=== PATIENT | female | born 1950 | race Caucasian/White ===

== ENCOUNTER 2019-04-12 04:18 | Inpatient (IN) | payer MEDICARE, BC, MEDICAID ==
--- NOTE | 2019-04-12 04:39 | EDM.PDOC ---
ED HPI GENERAL MEDICAL PROBLEM - General Chief Complaint: Respiratory Problem Stated Complaint: SOB, wheezing Time Seen by Provider: 04/12/19 04:30 Source of Information: Reports: Patient, Old Records ([facility] chart/EMR), Other ([facility] EMR reviewed on 08/30/14) - History of Present Illness INITIAL COMMENTS - FREE TEXT/NARRATIVE: The patient was brought to the emergency room via ambulance with director it project For evaluation of progressive dyspnea since yesterday morning with symptoms refractory to hormone nebulizer and inhaler treatments. She is a somewhat poor historian secondary to her mental status. The paramedics did use a DuoNeb nebulizer treatment in route. Patient does complain of 8/10 nonspecific interscapular pain with overall stable chronic heartburn type symptoms. The patient denies any chest pain/pressure, heart flutter, dizziness, orthostasis, orthopnea, diaphoresis, paresthesias, recent decreased exercise tolerance, or any other anginal-type symptoms. No recent history of other abdominal pain, nausea, melena, gross hematochezia, or any food intolerance, including fatty foods, etc., although somewhat loose stools at time of last bowel movement 3 days ago. She denies any gross hematuria, colic or other UTI symptoms. The patient also denies any recent fever or known exposure to infection. No recent use of antipyretic medications. Onset: Gradual, Unknown/Unsure Onset Date: 04/11/19 Duration: Constant, Getting Worse Location: Reports: Back. Denies: Head, Face, Neck, Chest, Abdomen, Upper Extremity, Left, Upper Extremity, Right, Radiates to Quality: Reports: Ache, Same as Previous Episode Severity: Moderate Improves with: Reports: None Worsens with: Reports: None Context: Reports: Other (As above). Denies: Sick Contact, Trauma Associated Symptoms: Reports: Confusion (Stable chronic), Cough, Rash (Stable), Shortness of Breath, Weakness (Stable with required walker use). 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, Oxygen (Nonrebreather) Upper Back Pain Score (Numeric/FACES): 8 - Related Data Allergies Allergy/AdvReac Type Severity Reaction Status Date / Time Penicillins Allergy Hives Verified 04/12/19 04:35 Sulfa (Sulfonamide Allergy Cannot Verified 04/12/19 04:35 Antibiotics) Remember Home Meds: Home Meds Acetaminophen [Tylenol Arthritis] 650 mg PO Q8H PRN 04/12/19 [History] Acetaminophen [Tylenol] 325 mg PO Q4H PRN 04/12/19 [History] Albuterol [Ventolin HFA] 2 puff INH Q4H PRN 04/12/19 [History] Albuterol/Ipratropium [DuoNeb 3.0-0.5 MG/3 ML] 3 ml INH Q4H PRN 04/12/19 [ History] Aspirin 81 mg PO DAILY 04/12/19 [History] Bisacodyl [Dulcolax] 5 mg PO DAILY PRN 04/12/19 [History] Calcium Citrate 200 mg PO DAILY 04/12/19 [History] Clopidogrel Bisulfate [Plavix] 75 mg PO DAILY 04/12/19 [History] Dapagliflozin Propanediol [Farxiga] 10 mg PO DAILY 04/12/19 [History] Gabapentin [Neurontin] 100 mg PO DAILY@08,,20 04/12/19 [History] Lisinopril [Zestril] 15 mg PO DAILY 04/12/19 [History] Magnesium Oxide [Magnesium] 400 mg PO DAILY 04/12/19 [History] Mirabegron [Myrbetriq] 25 mg PO BEDTIME 04/12/19 [History] Non-Formulary Medication [NF Drug] 2 inh INH DAILY 04/12/19 [History] Pantoprazole Sodium [Protonix] 20 mg PO DAILY 04/12/19 [History] Rosuvastatin [Crestor] 20 mg PO BEDTIME 04/12/19 [History] Sennosides/Docusate Sodium [Senna-S] 2 each PO BID 04/12/19 [History] Venlafaxine [Effexor XR] 75 mg PO DAILY 04/12/19 [History] Venlafaxine [Effexor XR] 150 mg PO DAILY 04/12/19 [History] busPIRone [Buspar] 15 mg PO DAILY@12 04/12/19 [History] metFORMIN HCl [Metformin HCl] 1,000 mg PO BID 04/12/19 [History] risperiDONE 1 mg PO BEDTIME 04/12/19 [History] risperiDONE [Risperdal] 0.25 mg PO DAILY@18 04/12/19 [History] Past Medical History HEENT History: Reports: Cataract, Impaired Vision, Other (See Below). Denies: Allergic Rhinitis, Glaucoma, Hard of Hearing, Macular Degeneration, Otitis Media , Retinal Detachment Other HEENT History: Patient wears glasses. Cardiovascular History: Reports: Afib, CAD, High Cholesterol, Hypertension, PVD , Syncope, Other (See Below). Denies: Aneurysm, Arrhythmia, Blood Clots/VTE/DVT , Cardiomyopathy, Heart Failure, Heart Murmur, RI Other Cardiovascular History: Fracture atrial fibrillation with rapid ventricular response coronary artery disease based on CT scan of the chest with no other cardiac workup. Mild aortic valve stenosis and mitral valve insufficiency by clinical exam. Moderate bilateral carotid occlusive disease. Respiratory History: Reports: Bronchitis, Recurrent, COPD, Intubation, Previous , Pneumonia, Recurrent, Other (See Below). Denies: Intubation, Difficult, PE, Pneumothorax, Sleep Apnea, TB Other Respiratory History: When necessary oxygen use secondary to hypoxia Gastrointestinal History: Reports: Chronic Constipation, Colon Polyp, Diverticulosis, Fecal Incontinence, Gastritis, GERD, Hiatal Hernia, Other (See Below). Denies: Celiac Disease, Cholelithiasis, Chronic Diarrhea, GI Bleed, Hemorrhoids, Hepatitis, Inflammatory Bowel Disease, Irritable Bowel Syndrome, Jaundice, Pancreatitis Other Gastrointestinal History: Gastritis with previous positive H pylori infection based on qualitative screen on 08/08/13 with unknown previous treatment. Tubular adenoma and tubulovillous adenoma of the ascending and transverse colon Genitourinary History: Reports: Urinary Incontinence, UTI, Recurrent. Denies: Acute Renal Failure, Chronic Renal Insuffiency, Renal Calculus, STD GRADES 1 THROUGH 5 TEACHER History: Reports: Dysfunctional Uterine Bleeding, Fibroids, . Denies: Spontaneous : 2 Para: 2 LMP (Approximate): Other (See Below) Other GRADES 1 THROUGH 5 TEACHER History: Full term without complications during pregnancies or deliveries. Surgical menopause as below. Musculoskeletal History: Reports: Arthritis, Back Pain, Chronic, Osteoarthritis , Osteoporosis. Denies: Amputation, Fracture, Gout, Neck Pain, Chronic, RA, SLE Neurological History: Reports: Other (See Below). Denies: Cerebral Aneurysms, Concussion, CVA, Headaches, Chronic, Head Trauma, Migraines, MS, Neuropathy, Peripheral, Parkinson's, Seizure, TIA Other Neuro History: Borderline organic brain syndrome. Psychiatric History: Reports: Addiction, Anxiety, Depression, Psych Hospitalization(s), Psychosis, Other (See Below). Denies: Abuse, Victim of, ADD , ADHD, PTSD, Suicide Attempt, Suicidal Ideation Other Psychiatric History: History of alcohol abuse and treatment as below. Endocrine/Metabolic History: Reports: Diabetes, Type II, IDDM, Obesity/BMI 30+, Osteopenia, Osteoporosis, Other (See Below). Denies: Hypothyroidism Other Endocrine/Metabolic History: Hypomagnesemia. Hematologic History: Reports: Anemia, B12 Deficiency, Blood Transfusion(s), Iron Deficiency, Other (See Below) Other Hematologic History: blood transfusion in 1975 Immunologic History: Denies: AIDS, HIV, SLE Oncologic (Cancer) History: Denies: Basal Cell Carcinoma, Breast, Cervix, Hodgkin's Lymphoma, Leukemia, Lymphoma, Malignant Melanoma, Non-Hodgkin's Lymphoma, Ovarian, Squamous Cell Carcinoma, Uterine Dermatologic History: Reports: Other (See Below) Other Dermatologic History: Nonspecific dermatitisatopic dermatitis? - Infectious Disease History Infectious Disease History: Reports: Chicken Pox, Helicobacter Pylori (2013 as above.), Measles, Mumps, Pertussis (Whooping Cough). Denies: C-Difficile, Meningitis, Mononucleosis, MRSA, Rheumatic Fever, Rubella, Scarlet Fever, Shingles, TB - Past Surgical History Head Surgeries/Procedures: Reports: None HEENT Surgical History: Reports: Cataract Surgery, Oral Surgery, Other (See Below). Denies: Adenoidectomy, Eye Surgery, Laser Surgery, LASIK, Myringotomy w Tube(s), Naso-Sinus Surgery, Tonsillectomy Other HEENT Surgeries/Procedures: Complete teeth extraction with complete dentures uppers and lowers. Bilateral cataract surgery in about 2016 Cardiovascular Surgical History: Reports: Carotid Endarterectomy, Other (See Below). Denies: Varicose Other Cardiovascular Surgeries/Procedures: Left-sided femoral-popliteal bypass on 08/21/14. Respiratory Surgical History: Reports: None. Denies: Thoracentesis GI Surgical History: Reports: Appendectomy, Colonoscopy, Polypectomy, Other ( See Below). Denies: Cholecystectomy, EGD, Hernia, Abdominal, Hernia, Inguinal, Hernia Repair/Other Other GI Surgeries/Procedures: Appendectomy in 1968. Colonoscopy with polypectomies as above on 08/07/13. Female Surgical History: Reports: Hysterectomy, Salpingo-Oophorectomy, Other (See Below). Denies: Section, D&C, Tubal Ligation Other Female Surgeries/Procedures: Partial hysterectomy with unilateral salpingo-oophorectomy secondary to dysfunctional uterine bleeding in 1981. Endocrine Surgical History: Reports: None. Denies: Thyroid Biopsy Neurological Surgical History: Reports: None. Denies: C-Spine, Discectomy, Laminectomy, Lumbar Spine, Sacral Spine, Spinal Fusion, Thoracic Spine, Vertebroplasty Musculoskeletal Surgical History: Reports: None. Denies: Arthroscopic Procedure , Carpal Tunnel, Ganglion Cyst, Hip Replacement, ORIF, Shoulder Surgery Oncologic Surgical History: Reports: None Dermatological Surgical History: Reports: None - Past Imaging History Past Imaging History: Reports: Angiography (Bilateral lower extremity angiogram on 07/19/14), Cardiac Echo (05/27/15 with ejection fraction of 6065 percent), Carotid US (Last on 01/29/19 with moderate bilateral disease with previous evaluation on 07/09/14.), CAT Scan (CT of the abdomen, pelvis, and chest on . CT of the chest on 08/21/09.), DEXA Scan (05/25/13.), Mammogram (Last on 01/29), MRI (Brain on 06/09/15), PFT (Last on 07/01/14.) Social & Family History - Family History HEENT: Denies: Glaucoma, Macular Degeneration, Retinal Detachment Cardiac: Reports: Aneurysm, Bypass, CAD, RI, PVD/COD, Other (See Below). Denies : Afib, Arrhythmia, High Cholesterol, Hypertension, Syncope Other Cardiac Family History: Mother with RI at age 56 with CABG and PTCA with subsequent fatal heart disease in her 70s. Father with RI in his late 50s. Brother with fatal RI in his 60s. Father with fatal cerebral aneurysms/CVA at age 74. Respiratory: Reports: None. Denies: Asthma, COPD, PE, Pneumothorax, Sleep Apnea GI: Reports: None. Denies: Celiac Disease, Cholelithiasis, Colon Polyps, GI bleed, Inflammatory Bowel Disease, Irritable Bowel Syndrome, PUD : Reports: None. Denies: Dialysis, Renal Calculus, Renal Disease/ Insufficiency OBGYN: Reports: None. Denies: Endometriosis, Recurrent Spontaneous Musculoskeletal: Reports: None. Denies: Gout, RA, SLE Neurological: Reports: Alzheimers Disease, Cerebral Aneurysms, CVA, Dementia, Other (See Below). Denies: Migraines, MS, Parkinson's, Seizure, TIA Other Neurological Family History: Father with fatal cerebral aneurysm as above. Sister with organic brain syndrome/Alzheimer's disease. Psychiatric: Reports: None. Denies: Abuse, Victim of, ADD, Anxiety, Depression , Psych Hospitalization(s), PTSD, Suicide Attempt Endocrine/Metabolic: Reports: Diabetes, type II, Other (See Below). Denies: Diabetes, Type I, Diabetes Mellitus, Type 3c, Hypothyroidism, IDDM Other Endocrine/Metabolic Family History: Brother with AODM Hematologic: Reports: None. Denies: Anemia Immunologic: Reports: None. Denies: AIDS, HIV, SLE Oncologic: Reports: Brain, Other (See Below). Denies: Cervix, Colon, Hodgkin's Lymphoma, Leukemia, Lymphoma, Non-Hodgkin's Lymphoma, Ovarian, Skin, Uterine Other Oncologic Family History: Maternal aunt with fatal brain cancer in her 50s. - Tobacco Use Smoking Status *Q: Former Smoker Tobacco Use Within Last Twelve Months: No Years of Tobacco use: 42 Packs/Tins Daily: 1.5 Packs/Tins Daily Comment: Stopped smoking in 2000 with maximum use of 2 packs per day. Used Tobacco, but Quit: Yes Smoking Cessation Information Provided To Patient: No Second Hand Smoke Exposure: No Second Hand Smoke Education Provided: No - Caffeine Use Caffeine Use: Reports: Coffee (2 cups per day), Soda (1 soda per day). Denies: Energy Drinks, Tea - Alcohol Use Alcohol Use History: Yes Days Per Week of Alcohol Use: 0 Number of Drinks Per Day Comment: History of alcohol abuse and treatment with no alcohol use since 1998. 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 ED EXAM, GENERAL - Physical Exam Exam: See Below Exam Limited By: No Limitations General Appearance: Alert, WD/WN, No Apparent Distress Eye Exam: Bilateral Eye: EOMI, Normal Inspection (Patient wearing glasses. No nystagmus), PERRL Ears: Normal External Exam, Normal Canal, Hearing Grossly Normal, Normal TMs Nose: Normal Inspection, Normal Mucosa, No Blood Throat/Mouth: Normal Lips, Normal Gums, Normal Oropharynx, Normal Voice, No Airway Compromise. No: Normal Teeth (Complete absent dentition with patient only wearing her upper dentures), Dysphagia, Perioral Cyanosis Head: Atraumatic, Normocephalic. No: Facial Swelling, Facial Tenderness, Sinus Tenderness Neck: Supple, Non-Tender, Full Range of Motion, Carotid Bruit (Mild bilateral carotid bruits versus transmitted heart sounds). No: Lymphadenopathy (L), Lymphadenopathy (R), Thyromegaly Respiratory/Chest: No Respiratory Distress, No Accessory Muscle Use, Chest Non- Tender, Rales (Mild bilateral), Rhonchi (Occasional mild bilateral). No: Wheezing, Pleural Rub, Retractions Cardiovascular: Normal Peripheral Pulses, No Edema, No Gallop, No JVD, No Rub, Tachycardia (Regular rhythm), Systolic Murmur (Mild 1/6 CHANELLE of the aortic and mitral valves). No: Gallop/S3, Gallop/S4, Friction Rub Peripheral Pulses: 2+: Radial (L), Radial (R), Dorsalis Pedis (L), Dorsalis Pedis (R) GI/Abdominal: Normal Bowel Sounds, Soft, Non-Tender, No Organomegaly, No Distention, No Abnormal Bruit, No Mass. No: Guarding, Other (Obese) (Female) Exam: Deferred Rectal (Female) Exam: Deferred Back Exam: Normal Inspection, Full Range of Motion. No: CVA Tenderness (L), CVA Tenderness (R), Muscle Spasm Extremities: Normal Inspection, Normal Range of Motion, Non-Tender, No Pedal Edema, Normal Capillary Refill. No: Jonathan's Sign Neurological: Alert, Oriented, CN II-XII Intact, Normal Cognition, Normal Gait, Normal Reflexes (Negative Babinski's), No Motor/Sensory Deficits Psychiatric: Normal Affect, Normal Mood Skin Exam: Rash (Stable diffuse mostly facial region consistent with atopic dermatitis). No: Diaphoretic, Wound/Incision Lymphatic: No Adenopathy EKG INTERPRETATION EKG Date: 04/12/19 Time: 04:58 Rhythm: Other (Sinus tachycardia with PVC) Rate (Beats/Min): 106 [place]: Normal (Neutral cardiac axis) P-Wave: Present QRS: Normal (QRS interval 0.06 seconds) ST-T: Normal QT: Normal FL/PQ Interval: 0.15 seconds Comparison: NA - No Prior EKG EKG Interpretation Comments: 1. No acute ischemic changes 2. Sinus tachycardia 3. PVC Course - Vital Signs Last Recorded V/S: Last Vital Signs Temp 36.4 C 04/12/19 04:20 Pulse 104 H 04/12/19 05:35 Resp 20 04/12/19 05:35 BP 160/67 H 04/12/19 05:35 Pulse Ox 96 04/12/19 05:35 Vital Signs - 24 hr 04/12/19 04/12/19 04/12/19 04:20 05:05 05:35 Temperature [ 36.4 C Oral] Pulse, 96 104 H 104 H Peripheral [ Pulse Oximetry] Respiratory 18 20 20 Rate Blood Pressure 172/75 H 134/66 160/67 H [Right Upper Arm] O2 Sat by Pulse 92 L 95 96 Oximetry 04/12/19 06:05 Temperature [ Oral] Pulse, 104 H Peripheral [ Pulse Oximetry] Respiratory 20 Rate Blood Pressure 157/69 H [Right Upper Arm] O2 Sat by Pulse 96 Oximetry - Orders/Labs/Meds Orders: Active Orders 24 hr Category Date Time Status Cardiac Monitoring [RC] . DIRECTED Care 04/12/19 04:40 Active EKG Documentation Completion [RC] ASDIRECTED Care 04/12/19 04:40 Active Oxygen Therapy, ED [RC] PRN Care 04/12/19 04:40 Active Peripheral IV Care [RC] . DIRECTED Care 04/12/19 04:40 Active Pulse Oximetry [RC] CONTINUOUS Care 04/12/19 04:40 Active RT Aerosol Therapy [RC] ASDIRECTED Care 04/12/19 04:43 Active Up With Assistance [RC] PFP Care 04/12/19 04:40 Active Vital Signs [RC] PFP Care 04/12/19 04:40 Active Nothing per Oral Now Diet [DIET] Diet 04/12/19 Breakfast Active Chest 1V Frontal [CR] Stat Exams 04/12/19 04:40 Ordered Sodium Chloride 0.9% [Saline Flush] Med 04/12/19 04:40 Active 10 ml FLUSH ASDIRECTED PRN Obtain Past Medical Record [OM.PC] Urgent Oth 04/12/19 04:40 Active Peripheral IV Insertion Adult [OM.PC] Stat Oth 04/12/19 04:40 Ordered Resuscitation Status Stat Resus Stat 04/12/19 04:40 Ordered Medication Orders Sodium Chloride (Saline Flush) 10 ml FLUSH ASDIRECTED PRN PRN Reason: Keep Vein Open Last Admin: 04/12/19 05:03 Dose: 10 ml Labs: Laboratory Tests 04/12/19 04/12/19 04/12/19 Range/Units 05:15 05:25 05:35 WBC 14.2 H (4.0-10.2) K/uL RBC 4.93 (3.77-5.09) M/uL Hgb 13.3 (11.7-15.5) g/dL Hct 42.0 (34.0-46.0) % MCV 85.2 (84.0-98.0) fL MCH 27.0 L (28.2-33.3) pg MCHC 31.7 (31.7-36.0) g/dL RDW 14.5 H (11.2-14.1) % Plt Count 295 (150-350) K/uL Neut % (Auto) 70.4 (45.0-80.0) % Lymph % (Auto) 16.2 (10.0-50.0) % [place] % (Auto) 7.9 (2.0-14.0) % Eos % (Auto) 5.1 H (0.0-5.0) % Baso % (Auto) 0.4 (0.0-2.0) % Neut # (Auto) 10.04 H (1.40-7.00) K/uL Lymph # (Auto) 2.31 (0.50-3.50) K/uL [place] # (Auto) 1.12 H (0.00-1.00) K/uL Eos # (Auto) 0.72 H (0.00-0.50) K/uL Baso # (Auto) 0.05 (0.00-0.20) K/uL PT 10.5 (9.5-12.0) SEC INR 1.0 APTT 25.7 (21.0-31.3) SEC D-Dimer, Quantitative 361 (0-400) ng/mL Sodium (136-145) mmol/L Potassium (3.5-5.1) mmol/L Chloride (98-107) mmol/L Carbon Dioxide (21.0-32.0) mmol/L BUN (7-18) mg/dL Creatinine (0.51-1.17) mg/dL Est Cr Clr Drug Dosing mL/min Estimated GFR (MDRD) mL/min Glucose (74-106) mg/dL Lactic Acid (0.4-2.0) mmol/L Uric Acid (2.6-7.2) mg/dL Calcium (8.5-10.1) mg/dL Magnesium (1.8-2.4) mg/dL Total Bilirubin (0.2-1.0) mg/dL AST (15-37) U/L ALT (12-78) U/L Alkaline Phosphatase (46-116) IU/L Creatine Kinase (26-308) U/L Creatine Kinase Index (0.0-2.5) % CK-MB (CK-2) (0.00-3.60) ng/mL Troponin I (0.000-0.056) ng/mL NT-Pro-B Natriuret Pep (0-125) pg/mL Total Protein (6.4-8.2) g/dL Albumin (3.4-5.0) g/dL TSH, Ultra Sensitive (0.358-3.740) mIU/mL 04/12/19 04/12/19 Range/Units 05:35 05:35 WBC (4.0-10.2) K/uL RBC (3.77-5.09) M/uL Hgb (11.7-15.5) g/dL Hct (34.0-46.0) % MCV (84.0-98.0) fL MCH (28.2-33.3) pg MCHC (31.7-36.0) g/dL RDW (11.2-14.1) % Plt Count (150-350) K/uL Neut % (Auto) (45.0-80.0) % Lymph % (Auto) (10.0-50.0) % [place] % (Auto) (2.0-14.0) % Eos % (Auto) (0.0-5.0) % Baso % (Auto) (0.0-2.0) % Neut # (Auto) (1.40-7.00) K/uL Lymph # (Auto) (0.50-3.50) K/uL [place] # (Auto) (0.00-1.00) K/uL Eos # (Auto) (0.00-0.50) K/uL Baso # (Auto) (0.00-0.20) K/uL PT (9.5-12.0) SEC INR APTT (21.0-31.3) SEC D-Dimer, Quantitative (0-400) ng/mL Sodium 139 (136-145) mmol/L Potassium 4.4 (3.5-5.1) mmol/L Chloride 101 (98-107) mmol/L Carbon Dioxide 26.1 (21.0-32.0) mmol/L BUN 14 (7-18) mg/dL Creatinine 0.87 (0.51-1.17) mg/dL Est Cr Clr Drug Dosing 47.59 mL/min Estimated GFR (MDRD) > 60 mL/min Glucose 220 H (74-106) mg/dL Lactic Acid 2.7 H (0.4-2.0) mmol/L Uric Acid 4.3 (2.6-7.2) mg/dL Calcium 9.2 (8.5-10.1) mg/dL Magnesium 1.5 L (1.8-2.4) mg/dL Total Bilirubin 0.2 (0.2-1.0) mg/dL AST 11 L (15-37) U/L ALT 14 (12-78) U/L Alkaline Phosphatase 76 (46-116) IU/L Creatine Kinase 50 (26-308) U/L Creatine Kinase Index 3.4 H (0.0-2.5) % CK-MB (CK-2) 1.70 (0.00-3.60) ng/mL Troponin I 0.009 (0.000-0.056) ng/mL NT-Pro-B Natriuret Pep 182 H (0-125) pg/mL Total Protein 7.4 (6.4-8.2) g/dL Albumin 3.6 (3.4-5.0) g/dL TSH, Ultra Sensitive 5.223 H (0.358-3.740) mIU/mL Meds: Medications Generic Name Dose Route Start Last Admin Trade Name Freq PRN Reason Stop Dose Admin Sodium Chloride 10 ml 04/12/19 04:40 04/12/19 05:03 Saline Flush FLUSH 10 ml ASDIRECTED PRN Administration Keep Vein Open Discontinued Medications Generic Name Dose Route Start Last Admin Trade Name Freq PRN Reason Stop Dose Admin Budesonide 0.5 mg 04/12/19 04:43 04/12/19 04:48 Pulmicort NEB 04/12/19 04:44 0.5 mg ONETIME ONE Administration Famotidine 40 mg 04/12/19 04:40 04/12/19 05:03 Pepcid IVPUSH 04/12/19 04:41 40 mg ONETIME ONE Administration - Radiology Interpretation Free Text/Narrative:: Site Interpreter shows mild sinus tachycardia with heart rate in the 100s with very occasional PVCs. Chest x-ray, portable, shows evidence of moderate COPD and moderate bilateral perihilar prominence possible mild centralized chest cardiomegaly, etc. Departure - Departure Time of Disposition: 06:15 Disposition: Admitted As Inpatient 64 Condition: Fair Clinical Impression: Diabetes mellitus, COPD (chronic obstructive pulmonary disease), Hypertension, Osteoarthritis, Mixed anxiety depressive disorder, Peptic reflux disease, Comfort measures only status, Lactic acid increased, Hypomagnesemia - Discharge Information *PRESCRIPTION DRUG MONITORING PROGRAM REVIEWED*: Not Applicable *COPY OF PRESCRIPTION DRUG MONITORING REPORT IN PATIENT WOODY: Not Applicable Referrals: Natalie Johnson NP [Primary Care Provider] - Forms: ED Department Discharge - Problem List & Annotations (1) COPD (chronic obstructive pulmonary disease) SNOMED Code(s): 35966251 Code(s): J44.9 - CHRONIC OBSTRUCTIVE PULMONARY DISEASE, UNSPECIFIED Status : Chronic Priority: High Current Visit: Yes Annotation/Comment:: COPD exacerbation likely secondary to beginning bronchitis with no direct evidence of pneumonia by clinical exam. Mild leukocytosis possibly secondary to stress reaction with no fever. Overall good results with Pulmicort nebulizer treatment in the ER with previous DuoNeb treatment given by the paramedics as above. Patient was hypoxic in the emergency room and did require supplemental O2 therapy. IV antibiotic therapy to be initiated immediately upon admission. Qualifiers: COPD type: COPD with acute lower respiratory infection Qualified Code(s): J44.0 - Chronic obstructive pulmonary disease with acute lower respiratory infection (2) Heart disease SNOMED Code(s): 71475355 Code(s): I51.9 - HEART DISEASE, UNSPECIFIED Status: Acute Priority: High Current Visit: Yes Annotation/Comment:: Patient is a somewhat poor historian as above. No direct evidence of true angina with chest pain protocol not initiated upon patient's arrival. Probable coronary artery disease based on previous CT scans as above. Initiate standard rule out RI orders. Note comfort care. Cardiology consultation depending on her clinical course. CK index artifactually elevated secondary to low CK-MB baseline. Note multiple cardiac risk factors including peripheral vascular disease, etc. as above (3) Comfort measures only status SNOMED Code(s): 33583968669507 Code(s): Z51.5 - ENCOUNTER FOR PALLIATIVE CARE Status: Chronic Priority: Medium Current Visit: Yes Annotation/Comment:: Comfort/palliative care confirmed with the patient today. (4) PVCs (premature ventricular contractions) SNOMED Code(s): 05646171 Code(s): I49.3 - VENTRICULAR PREMATURE DEPOLARIZATION Status: Acute Priority: Medium Current Visit: Yes Onset Date: 04/12/19 Annotation/ Comment:: Newly diagnosed with previous history of refractory atrial fibrillation as above. Note current sinus tachycardia. Continue to observe closely. (5) Diabetes mellitus SNOMED Code(s): 68238063 Code(s): E11.9 - TYPE 2 DIABETES MELLITUS WITHOUT COMPLICATIONS Status: Acute Priority: Medium Current Visit: Yes Annotation/Comment:: Home Accu- Cheks under good control by patient history averaging in the 180s to 190s in the a.m. (6) Hypertension SNOMED Code(s): 36886962 Code(s): I10 - ESSENTIAL (PRIMARY) HYPERTENSION Status: Chronic Priority : Medium Current Visit: Yes Annotation/Comment:: Blood pressure somewhat elevated in the emergency room. Continue to observe closely. Qualifiers: Hypertension type: essential hypertension Qualified Code(s): I10 - Essential (primary) hypertension (7) Mixed anxiety depressive disorder SNOMED Code(s): 091083881 Code(s): F41.8 - OTHER SPECIFIED ANXIETY DISORDERS Status: Chronic Priority: Medium Current Visit: Yes Annotation/Comment:: Stable by history with previous history of psychosis, alcohol addiction, etc. as above. (8) Osteoarthritis SNOMED Code(s): 459737853 Code(s): M19.90 - UNSPECIFIED OSTEOARTHRITIS, UNSPECIFIED SITE Status: Chronic Priority: Medium Current Visit: Yes Annotation/Comment:: Stable by history with exception of nonspecific midthoracic/intrascapular discomfort. No history of fall or injury. Cannot rule out cardiac etiology. Qualifiers: Osteoarthritis location: multiple joints Osteoarthritis type: primary Qualified Code(s): M15.0 - Primary generalized (osteo)arthritis (9) Peptic reflux disease SNOMED Code(s): 086360539 Code(s): K21.9 - GASTRO-ESOPHAGEAL REFLUX DISEASE WITHOUT ESOPHAGITIS Status: Chronic Priority: Medium Current Visit: Yes Annotation/Comment:: Stable by history. High-dose IV Pepcid given in the emergency room (10) Lactic acid increased SNOMED Code(s): 07673047 Code(s): E87.2 - ACIDOSIS Status: Acute Priority: High Current Visit: Yes Onset Date: 04/12/19 Annotation/Comment:: Lactic acid elevation, however no clinical evidence of sepsis. Lactic acid will be repeated at time of next cardiac enzymes. (11) Hypomagnesemia SNOMED Code(s): 304205429 Code(s): E83.42 - HYPOMAGNESEMIA Status: Chronic Priority: Medium Current Visit: Yes Annotation/Comment:: Increase current magnesium oxide supplementation. - Problem List Review Problem List Initiated/Reviewed/Updated: Yes - My Orders Last 24 Hours: My Active Orders 04/12/19 04:40 Cardiac Monitoring [RC] . DIRECTED EKG Documentation Completion [RC] ASDIRECTED Oxygen Therapy, ED [RC] PRN Peripheral IV Care [RC] . DIRECTED Pulse Oximetry [RC] CONTINUOUS Up With Assistance [RC] PFP Vital Signs [RC] PFP Chest 1V Frontal [CR] Stat Sodium Chloride 0.9% [Saline Flush] 10 ml FLUSH ASDIRECTED PRN Obtain Past Medical Record [OM.PC] Urgent Peripheral IV Insertion Adult [OM.PC] Stat Resuscitation Status Stat 04/12/19 04:43 RT Aerosol Therapy [RC] ASDIRECTED 04/12/19 Breakfast Nothing per Oral Now Diet [DIET] - Assessment/Plan Admission H&P: Please use this note as an admission H&P Last 24 Hours: My Active Orders 04/12/19 04:40 Cardiac Monitoring [RC] . DIRECTED EKG Documentation Completion [RC] ASDIRECTED Oxygen Therapy, ED [RC] PRN Peripheral IV Care [RC] . DIRECTED Pulse Oximetry [RC] CONTINUOUS Up With Assistance [RC] PFP Vital Signs [RC] PFP Chest 1V Frontal [CR] Stat Sodium Chloride 0.9% [Saline Flush] 10 ml FLUSH ASDIRECTED PRN Obtain Past Medical Record [OM.PC] Urgent Peripheral IV Insertion Adult [OM.PC] Stat Resuscitation Status Stat 04/12/19 04:43 RT Aerosol Therapy [RC] ASDIRECTED 04/12/19 Breakfast Nothing per Oral Now Diet [DIET] Assessment:: As above Plan: As above. Extensive precautions were given to the patient, who is in agreement with the treatment plan. The patient will require about 3-4 days of inpatient/ acute care secondary to multiple health problems as above.
[2019-04-12] MEDS ORDERED: Famotidine 20 MG/2 ML SDV IVPUSH ONE (04:40)
[2019-04-12] MEDS ORDERED: Budesonide 0.5 MG/2 ML Neb Susp NEB ONE (04:43)
[2019-04-12] MEDS: Sodium Chloride 0.9% 10 ML Syringe FLUSH PRN (05:03)
[2019-04-12 06:07] LABS: CHLORIDE,CL 101 mmol/L (98-107); SODIUM,NA 139 mmol/L (136-145)
[2019-04-12] MEDS ORDERED: Albuterol 0.083% 2.5 MG/3 ML Neb Soln NEB PRN (06:22)
[2019-04-12] MEDS ORDERED: Albuterol/Ipratropium 3.0-0.5 MG/3 ML Neb Soln NEB PRN (06:22)
[2019-04-12] MEDS: Sodium Chloride 0.9% 10 ML Syringe FLUSH SCH ×2 (07:01→18:20)
[2019-04-12] MEDS: cefTRIAXone 1 GM in Sodium Chloride 0.9% 100 ML IV SCH ×2 (07:01→18:19)
[2019-04-12] MEDS: Levofloxacin/Dextrose 5%-Water 500 MG in Premix Bag 1 BAG IV SCH (07:43)
[2019-04-12] MEDS: Lisinopril 10 MG Tab PO SCH (07:50)
[2019-04-12] MEDS: Dextromethorphan/guaiFENesin 600-30 MG Tab.ER PO SCH ×2 (07:50→18:18)
[2019-04-12] MEDS: Venlafaxine 75 MG Cap.ER PO SCH (07:57)
[2019-04-12] MEDS: Gabapentin 100 MG Cap PO SCH ×3 (07:58→19:27)
[2019-04-12] MEDS: metFORMIN 500 MG Tab PO SCH ×2 (07:59→18:18)
[2019-04-12] MEDS ORDERED: DAPAGLIFLOZIN PROPANEDIOL 10 MG PO SCH (08:00)
[2019-04-12] MEDS ORDERED: Non-Formulary Medication 1 Each (Venlafaxine [Effexor Xr] 150 MG) PO SCH (08:00)
[2019-04-12] MEDS: Pantoprazole 40 MG Tab.CR PO SCH (08:01)
[2019-04-12] MEDS: Aspirin 81 MG Tab.Chew PO SCH (08:01)
[2019-04-12] MEDS: Clopidogrel 75 MG Tab PO SCH (08:01)
[2019-04-12] MEDS: Magnesium Oxide 400 MG Tab PO SCH ×2 (08:02→18:19)
[2019-04-12] MEDS: Albuterol/Ipratropium 3.0-0.5 MG/3 ML Neb Soln NEB SCH ×3 (08:02→19:27)
[2019-04-12] MEDS: busPIRone 15 MG Tab PO SCH (11:47)
[2019-04-12] MEDS: risperiDONE 0.25 MG Tab PO SCH (18:17)
[2019-04-12] MEDS: Bisacodyl 5 MG Tab PO PRN (18:18)
[2019-04-12] MEDS: Acetaminophen 325 MG Tab PO PRN (18:18)
[2019-04-12] MEDS: Mirabegron 25 MG Tab Extended Release PO SCH (19:27)
[2019-04-12] MEDS: risperiDONE 1 MG Tab PO SCH (19:27)
[2019-04-12] MEDS: Rosuvastatin 10 MG Tab PO SCH (19:27)
[2019-04-12] MEDS: Budesonide 0.5 MG/2 ML Neb Susp NEB SCH (19:27)
[2019-04-13] MEDS: Albuterol/Ipratropium 3.0-0.5 MG/3 ML Neb Soln NEB SCH ×4 (02:11→19:26)
[2019-04-13] MEDS: cefTRIAXone 1 GM in Sodium Chloride 0.9% 100 ML IV SCH ×2 (05:52→18:21)
[2019-04-13] MEDS: Sodium Chloride 0.9% 10 ML Syringe FLUSH SCH ×2 (05:52→19:28)
[2019-04-13 08:07] LABS: CHLORIDE,CL 105 mmol/L (98-107); SODIUM,NA 143 mmol/L (136-145)
[2019-04-13] MEDS: Venlafaxine 75 MG Cap.ER PO SCH (09:42)
[2019-04-13] MEDS: Budesonide 0.5 MG/2 ML Neb Susp NEB SCH ×2 (09:42→19:26)
[2019-04-13] MEDS: metFORMIN 500 MG Tab PO SCH ×2 (09:43→18:24)
[2019-04-13] MEDS: Clopidogrel 75 MG Tab PO SCH (09:43)
[2019-04-13] MEDS: Dextromethorphan/guaiFENesin 600-30 MG Tab.ER PO SCH ×2 (09:43→18:25)
[2019-04-13] MEDS: Aspirin 81 MG Tab.Chew PO SCH (09:44)
[2019-04-13] MEDS: Magnesium Oxide 400 MG Tab PO SCH ×2 (09:44→18:23)
[2019-04-13] MEDS: Gabapentin 100 MG Cap PO SCH ×3 (09:44→19:27)
[2019-04-13] MEDS: Pantoprazole 40 MG Tab.CR PO SCH (09:48)
[2019-04-13] MEDS: Levofloxacin/Dextrose 5%-Water 500 MG in Premix Bag 1 BAG IV SCH (09:48)
[2019-04-13] MEDS: Lisinopril 10 MG Tab PO SCH (09:49)
--- NOTE | 2019-04-13 10:37 | PCM.PN ---
- General Info Date of Service: 04/13/19 Admission Dx/Problem (Free Text): 1. COPD with bronchopneumonia 2. Coronary artery disease Subjective Update: Patient is a somewhat poor story and secondary to her baseline psychiatric status and mild organic brain syndrome. Functional Status: Reports: Pain Controlled, Tolerating Diet, Ambulating, Urinating, Incentive Spirometry. Denies: New Symptoms - Review of Systems General: Reports: No Symptoms, Appetite (Good). Denies: Fever, Weakness, Fatigue, Malaise, Chills, Night Sweats HEENT: Reports: No Symptoms. Denies: Ear Pain, Eye Pain, Headaches, Sinus Congestion, Sore Throat, Rhinitis, Visual Changes Pulmonary: Reports: Cough (Mild improved). Denies: Shortness of Breath, Pleuritic Chest Pain, Sputum, Hemoptysis, Wheezing (Improved) Cardiovascular: Reports: No Symptoms. Denies: Chest Pain, Dyspnea on Exertion, Orthopnea, PND, Edema Gastrointestinal: Reports: No Symptoms, Other (No bowel movement to this point) . Denies: Abdominal Pain, Constipation, Decreased Appetite, Diarrhea, Difficulty Swallowing, Flatus, Hematochezia, Melena, Nausea, Vomiting Genitourinary: Reports: Incontinence. Denies: Dysuria, Frequency, Burning, Urgency, Hematuria, Retention, Flank Pain Musculoskeletal: Reports: No Symptoms. Denies: Neck Pain, Shoulder Pain, Arm Pain, Back Pain, Leg Pain Skin: Reports: No Symptoms. Denies: Diaphoresis, Bruising, Pruritis, Rash Neurological: Reports: No Symptoms, Confusion (Stable). Denies: Headache, Weakness Psychiatric: Reports: Confusion. Denies: Depression, Anxiety, Agitation, Cravings, Hallucinations - Patient Data Vitals - Most Recent: Last Vital Signs Temp 36.3 C 04/13/19 05:55 Pulse 73 04/13/19 05:55 Resp 16 04/13/19 05:55 BP 130/52 L 04/13/19 09:49 Pulse Ox 94 L 04/13/19 05:55 Vital Signs - 24 hr 04/12/19 04/12/19 04/12/19 12:57 18:00 22:54 Temperature [ 36.5 C 36.6 C 36.4 C Temporal] Pulse, 85 90 79 Peripheral [ Pulse Oximetry] Respiratory 17 16 16 Rate Blood Pressure Blood Pressure 121/68 109/55 L 119/42 L [Right Upper Arm] O2 Sat by Pulse 100 95 97 Oximetry 04/13/19 04/13/19 05:55 09:49 Temperature [ 36.3 C Temporal] Pulse, 73 Peripheral [ Pulse Oximetry] Respiratory 16 Rate Blood Pressure 130/52 L Blood Pressure 130/52 L [Right Upper Arm] O2 Sat by Pulse 94 L Oximetry Weight - Most Recent: 90.35 kg I&O - Last 24 Hours: Intake & Output 04/12/19 04/13/19 04/13/19 22:59 06:59 14:59 Intake Total 400 100 720 Balance 400 100 720 Imaging Impressions - Last 24 Hours: [employer] shows normal sinus rhythm with heart in the 80s to 90s and improved very occasional PVCs Lab Results Last 24 Hours: Laboratory Results - last 24 hr 04/12/19 04/12/19 04/12/19 Range/Units 11:05 11:05 11:05 WBC (4.0-10.2) K/uL RBC (3.77-5.09) M/uL Hgb (11.7-15.5) g/dL Hct (34.0-46.0) % MCV (84.0-98.0) fL MCH (28.2-33.3) pg MCHC (31.7-36.0) g/dL RDW (11.2-14.1) % Plt Count (150-350) K/uL Neut % (Auto) (45.0-80.0) % Lymph % (Auto) (10.0-50.0) % [place] % (Auto) (2.0-14.0) % Eos % (Auto) (0.0-5.0) % Baso % (Auto) (0.0-2.0) % Neut # (Auto) (1.40-7.00) K/uL Lymph # (Auto) (0.50-3.50) K/uL [place] # (Auto) (0.00-1.00) K/uL Eos # (Auto) (0.00-0.50) K/uL Baso # (Auto) (0.00-0.20) K/uL Sodium (136-145) mmol/L Potassium (3.5-5.1) mmol/L Chloride (98-107) mmol/L Carbon Dioxide (21.0-32.0) mmol/L BUN (7-18) mg/dL Creatinine (0.51-1.17) mg/dL Est Cr Clr Drug Dosing mL/min Estimated GFR (MDRD) mL/min Glucose (74-106) mg/dL Hemoglobin A1c (4.3-5.7) % Lactic Acid 2.3 H (0.4-2.0) mmol/L Calcium (8.5-10.1) mg/dL Total Bilirubin (0.2-1.0) mg/dL AST (15-37) U/L ALT (12-78) U/L Alkaline Phosphatase (46-116) IU/L Creatine Kinase 46 (26-308) U/L Creatine Kinase Index 3.5 H (0.0-2.5) % CK-MB (CK-2) 1.60 (0.00-3.60) ng/mL Troponin I 0.017 (0.000-0.056) ng/mL Total Protein (6.4-8.2) g/dL Albumin (3.4-5.0) g/dL Triglycerides 92 (30-150) mg/dL Cholesterol 125 (100-200) mg/dL LDL Cholesterol, Calc 47 (0-100) mg/dL HDL Cholesterol 60 (40-60) mg/dL 04/12/19 04/13/19 04/13/19 Range/Units 11:05 07:06 07:06 WBC 6.6 (4.0-10.2) K/uL RBC 4.01 (3.77-5.09) M/uL Hgb 10.8 L D (11.7-15.5) g/dL Hct 35.1 (34.0-46.0) % MCV 87.5 (84.0-98.0) fL MCH 26.9 L (28.2-33.3) pg MCHC 30.8 L (31.7-36.0) g/dL RDW 14.5 H (11.2-14.1) % Plt Count 267 (150-350) K/uL Neut % (Auto) 50.7 (45.0-80.0) % Lymph % (Auto) 26.3 (10.0-50.0) % [place] % (Auto) 9.8 (2.0-14.0) % Eos % (Auto) 12.6 H (0.0-5.0) % Baso % (Auto) 0.6 (0.0-2.0) % Neut # (Auto) 3.35 (1.40-7.00) K/uL Lymph # (Auto) 1.74 (0.50-3.50) K/uL [place] # (Auto) 0.65 (0.00-1.00) K/uL Eos # (Auto) 0.83 H (0.00-0.50) K/uL Baso # (Auto) 0.04 (0.00-0.20) K/uL Sodium 143 (136-145) mmol/L Potassium 4.2 (3.5-5.1) mmol/L Chloride 105 (98-107) mmol/L Carbon Dioxide 27.0 (21.0-32.0) mmol/L BUN 12 (7-18) mg/dL Creatinine 0.79 (0.51-1.17) mg/dL Est Cr Clr Drug Dosing 52.41 mL/min Estimated GFR (MDRD) > 60 mL/min Glucose 135 H (74-106) mg/dL Hemoglobin A1c 8.0 H (4.3-5.7) % Lactic Acid (0.4-2.0) mmol/L Calcium 9.0 (8.5-10.1) mg/dL Total Bilirubin 0.1 L (0.2-1.0) mg/dL AST 9 L (15-37) U/L ALT 11 L (12-78) U/L Alkaline Phosphatase 60 (46-116) IU/L Creatine Kinase 33 (26-308) U/L Creatine Kinase Index 3.3 H (0.0-2.5) % CK-MB (CK-2) 1.10 (0.00-3.60) ng/mL Troponin I 0.009 (0.000-0.056) ng/mL Total Protein 6.1 L (6.4-8.2) g/dL Albumin 2.9 L (3.4-5.0) g/dL Triglycerides (30-150) mg/dL Cholesterol (100-200) mg/dL LDL Cholesterol, Calc (0-100) mg/dL HDL Cholesterol (40-60) mg/dL 04/13/19 Range/Units 07:06 WBC (4.0-10.2) K/uL RBC (3.77-5.09) M/uL Hgb (11.7-15.5) g/dL Hct (34.0-46.0) % MCV (84.0-98.0) fL MCH (28.2-33.3) pg MCHC (31.7-36.0) g/dL RDW (11.2-14.1) % Plt Count (150-350) K/uL Neut % (Auto) (45.0-80.0) % Lymph % (Auto) (10.0-50.0) % [place] % (Auto) (2.0-14.0) % Eos % (Auto) (0.0-5.0) % Baso % (Auto) (0.0-2.0) % Neut # (Auto) (1.40-7.00) K/uL Lymph # (Auto) (0.50-3.50) K/uL [place] # (Auto) (0.00-1.00) K/uL Eos # (Auto) (0.00-0.50) K/uL Baso # (Auto) (0.00-0.20) K/uL Sodium (136-145) mmol/L Potassium (3.5-5.1) mmol/L Chloride (98-107) mmol/L Carbon Dioxide (21.0-32.0) mmol/L BUN (7-18) mg/dL Creatinine (0.51-1.17) mg/dL Est Cr Clr Drug Dosing mL/min Estimated GFR (MDRD) mL/min Glucose (74-106) mg/dL Hemoglobin A1c (4.3-5.7) % Lactic Acid 3.0 H (0.4-2.0) mmol/L Calcium (8.5-10.1) mg/dL Total Bilirubin (0.2-1.0) mg/dL AST (15-37) U/L ALT (12-78) U/L Alkaline Phosphatase (46-116) IU/L Creatine Kinase (26-308) U/L Creatine Kinase Index (0.0-2.5) % CK-MB (CK-2) (0.00-3.60) ng/mL Troponin I (0.000-0.056) ng/mL Total Protein (6.4-8.2) g/dL Albumin (3.4-5.0) g/dL Triglycerides (30-150) mg/dL Cholesterol (100-200) mg/dL LDL Cholesterol, Calc (0-100) mg/dL HDL Cholesterol (40-60) mg/dL Micha Results Last 24 Hours: Urine culture and sensitivity still pending Med Orders - Current: Current Medications Acetaminophen (Tylenol) 650 mg PO Q4H PRN PRN Reason: Pain/Fever Last Admin: 04/12/19 18:18 Dose: 650 mg Albuterol (Proventil Neb Soln) 2.5 mg NEB Q2H PRN PRN Reason: Dyspnea Albuterol/Ipratropium (Duoneb 3.0-0.5 Mg/3 Ml) 3 ml NEB Q4HRRT PRN PRN Reason: Dyspnea Last Admin: 04/12/19 18:17 Dose: 3 ml Albuterol/Ipratropium (Duoneb 3.0-0.5 Mg/3 Ml) 3 ml NEB Q6HRRT [facility] Last Admin: 04/13/19 09:42 Dose: 3 ml Aspirin (Aspirin) 81 mg PO DAILY [facility] Last Admin: 04/13/19 09:44 Dose: 81 mg Bisacodyl (Dulcolax) 5 mg PO DAILY PRN PRN Reason: Constipation Last Admin: 04/12/19 18:18 Dose: 5 mg Budesonide (Pulmicort) 0.5 mg NEB BIDRT [facility] Last Admin: 04/13/19 09:42 Dose: 0.5 mg Buspirone HCl (Buspar) 15 mg PO DAILY@1200 [facility] Last Admin: 04/12/19 11:47 Dose: 15 mg Clopidogrel Bisulfate (Plavix) 75 mg PO DAILY [facility] Last Admin: 04/13/19 09:43 Dose: 75 mg Gabapentin (Neurontin) 100 mg PO DAILY@08,12,20 [facility] Last Admin: 04/13/19 09:44 Dose: 100 mg Guaifenesin/Dextromethorphan (Mucinex Dm Er 600-30 Mg) 1 tab PO BID [facility] Last Admin: 04/13/19 09:43 Dose: 1 tab Ceftriaxone Sodium 1 gm/ (Sodium Chloride) 100 mls @ 200 mls/hr IV Q12H [facility] Last Admin: 04/13/19 05:52 Dose: 200 mls/hr Levofloxacin/Dextrose 500 mg/ (Premix) 100 mls @ 100 mls/hr IV Q24H [facility] Last Admin: 04/13/19 09:48 Dose: 100 mls/hr Lisinopril (Prinivil) 15 mg PO DAILY [facility] Last Admin: 04/13/19 09:49 Dose: 15 mg Magnesium Oxide (Magnesium Oxide) 400 mg PO BID [facility] Last Admin: 04/13/19 09:44 Dose: 400 mg Metformin HCl (Glucophage) 1,000 mg PO BID [facility] Last Admin: 04/13/19 09:43 Dose: 1,000 mg Mirabegron (Myrbetriq) 25 mg PO BEDTIME [facility] Last Admin: 04/12/19 19:27 Dose: 25 mg Dapagliflozin Propanediol [Farxiga ] 10mg 10 mg PO DAILY [facility] Pantoprazole Sodium (Protonix) 40 mg PO ACBREAKFAST [facility] Last Admin: 04/13/19 09:48 Dose: 40 mg Risperidone (Risperidal) 0.25 mg PO DAILY@1800 [facility] Last Admin: 04/12/19 18:17 Dose: 0.25 mg Risperidone (Risperidal) 1 mg PO BEDTIME [facility] Last Admin: 04/12/19 19:27 Dose: 1 mg Rosuvastatin Calcium (Crestor) 20 mg PO BEDTIME [facility] Last Admin: 04/12/19 19:27 Dose: 20 mg Senna/Docusate Sodium (Senna Plus) 2 tab PO BID [facility] Last Admin: 04/13/19 09:43 Dose: 2 tab Sodium Chloride (Saline Flush) 10 ml FLUSH ASDIRECTED PRN PRN Reason: Keep Vein Open Last Admin: 04/12/19 05:03 Dose: 10 ml Sodium Chloride (Saline Flush) 10 ml FLUSH Q12H [facility] Last Admin: 04/13/19 05:52 Dose: 10 ml Venlafaxine HCl (Effexor Xr) 225 mg PO DAILY [facility] Last Admin: 04/13/19 09:42 Dose: 225 mg Discontinued Medications Budesonide (Pulmicort) 0.5 mg NEB ONETIME ONE Stop: 04/12/19 04:44 Last Admin: 04/12/19 04:48 Dose: 0.5 mg Famotidine (Pepcid) 40 mg IVPUSH ONETIME ONE Stop: 04/12/19 04:41 Last Admin: 04/12/19 05:03 Dose: 40 mg Non-Formulary Medication (Venlafaxine [Effexor Xr]) 150 mg PO DAILY [facility] - Exam Quality Assessment: DVT Prophylaxis. No: Supplemental Oxygen, Central Line/PICC , Urine Catheter General: Alert, Cooperative. No: Oriented (Baseline organic brain syndrome and psychosis) HEENT: Pupils Equal, Pupils Reactive, EOMI, Mucous Membr. Moist/[place], Other ( Patient wearing glasses) Neck: Supple, Trachea Midline, No JVD, No Thyromegaly, Carotid Bruit (Stable mild bilateral carotid bruits versus transmitted heart sounds) Lungs: Normal Respiratory Effort, Rales (Mild bilateral basilar rales). No: Rhonchi, Rub, Wheezing Cardiovascular: Regular Rate, Regular Rhythm, Murmurs (Stable mild 1/6 CHANELLE of the aortic and mitral valves). No: No Murmurs, Rubs GI/Abdominal Exam: Normal Bowel Sounds, Soft, Non-Tender, No Organomegaly, No Distention, No Abnormal Bruit, No Mass, Other (Obese). No: Guarding (Female) Exam: Deferred Back Exam: Full Range of Motion, Other (Mild kyphosis). No: CVA Tenderness (L) , CVA Tenderness (R), Muscle Spasm, Paraspinal Tenderness, Vertebral Tenderness Extremities: Normal Inspection, Normal Range of Motion, Non-Tender, No Pedal Edema, Normal Capillary Refill. No: Jonathan's Sign Peripheral Pulses: 2+: Radial (L), Radial (R), Dorsalis Pedis (L), Dorsalis Pedis (R) Skin: Warm, Dry, Intact. No: Ecchymosis Neurological: No New Focal Deficit Psy/Mental Status: Alert, Normal Affect, Normal Mood, Other (Stable mild organic brain syndrome and psychosis). No: Agitated, Hallucinations, Withdrawal Symptoms EKG INTERPRETATION EKG Date: 04/13/19 Time: 07:50 Rhythm: NSR Rate (Beats/Min): 70 [place]: Normal (Neutral cardiac axis) P-Wave: Present QRS: Normal (0.06 seconds) ST-T: Normal QT: Normal ND/PQ Interval: 0.14 seconds with possible pulmonary hypertension by EKG Comparison: No Change (Since 7/4/19 with exception of resolution of PVCs) EKG Interpretation Comments: No acute ischemic changes - Problem List & Annotations (1) COPD (chronic obstructive pulmonary disease) SNOMED Code(s): 62602087 Code(s): J44.9 - CHRONIC OBSTRUCTIVE PULMONARY DISEASE, UNSPECIFIED Status : Chronic Priority: High Current Visit: Yes Qualifiers: COPD type: COPD with acute lower respiratory infection Qualified Code(s): J44.0 - Chronic obstructive pulmonary disease with acute lower respiratory infection Annotation/Comment:: Patient much improved today despite mild progressive lactic acid elevation with no clinical evidence of sepsis. COPD exacerbation likely secondary to beginning bronchitis and/or pneumonia. Mild leukocytosis possibly secondary to stress reaction and/or current infection on admission has since resolved with no fever during this hospitalization. Continue aggressive DuoNeb and Pulmicort nebulizer treatments, which [facility] enforced [facility]. Care management team will verify that patient is safe to go to home [facility] at time of discharge. Overall good results with Pulmicort nebulizer treatment in the ER with previous DuoNeb treatment given by the paramedics prior to arrival in the emergency room as above. Patient was hypoxic in the emergency room and did require supplemental O2 therapy. Continue aggressive IV Rocephin and IV Levaquin antibiotic therapy. Repeat lactic acid level with other blood work in the a.m. (2) Heart disease SNOMED Code(s): 10140321 Code(s): I51.9 - HEART DISEASE, UNSPECIFIED Status: Acute Priority: High Current Visit: Yes Annotation/Comment:: Patient is a somewhat poor historian as above. No direct evidence of true angina with chest pain protocol not initiated upon patient's arrival. Probable coronary artery disease based on previous CT scans as above. Standard rule out ME orders have been negative to this point. Note comfort care. Cardiology consultation depending on her clinical course. CK index artifactually elevated secondary to low CK-MB baseline. Note multiple cardiac risk factors, including peripheral vascular disease, etc. as above (3) Comfort measures only status SNOMED Code(s): 32300853440177 Code(s): Z51.5 - ENCOUNTER FOR PALLIATIVE CARE Status: Chronic Priority: Medium Current Visit: Yes Annotation/Comment:: Comfort/palliative care confirmed with the patient today. (4) PVCs (premature ventricular contractions) SNOMED Code(s): 04382428 Code(s): I49.3 - VENTRICULAR PREMATURE DEPOLARIZATION Status: Acute Priority: Medium Current Visit: Yes Onset Date: 04/12/19 Annotation/ Comment:: Newly diagnosed with previous history of refractory atrial fibrillation as above. Note sinus tachycardia on admission has resolved. Continue to observe closely. (5) Diabetes mellitus SNOMED Code(s): 88754365 Code(s): E11.9 - TYPE 2 DIABETES MELLITUS WITHOUT COMPLICATIONS Status: Acute Priority: Medium Current Visit: Yes Annotation/Comment:: Glycosylated hemoglobin elevated at 8.0% with normal lipid panel under current medical therapy. Home Accu-Cheks under good control by patient history averaging in the 180s to 190s in the a.m. Patient may not be a good candidate for a sliding scale at home secondary to her mental status. Consider more aggressive management by her regular providers, public health, etc. at discharge , although she may be a candidate for long-term care placement. (6) Hypertension SNOMED Code(s): 35946607 Code(s): I10 - ESSENTIAL (PRIMARY) HYPERTENSION Status: Chronic Priority : Medium Current Visit: Yes Qualifiers: Hypertension type: essential hypertension Qualified Code(s): I10 - Essential (primary) hypertension Annotation/Comment:: Blood pressure somewhat elevated in the emergency room, however improved during initial phases of this hospitalization. Continue to observe closely. (7) Mixed anxiety depressive disorder SNOMED Code(s): 685949150 Code(s): F41.8 - OTHER SPECIFIED ANXIETY DISORDERS Status: Chronic Priority: Medium Current Visit: Yes Annotation/Comment:: Stable by history and during this hospitalization with previous history of psychosis, alcohol addiction, etc. as above. (8) Osteoarthritis SNOMED Code(s): 947701340 Code(s): M19.90 - UNSPECIFIED OSTEOARTHRITIS, UNSPECIFIED SITE Status: Chronic Priority: Medium Current Visit: Yes Qualifiers: Osteoarthritis location: multiple joints Osteoarthritis type: primary Qualified Code(s): M15.0 - Primary generalized (osteo)arthritis Annotation/Comment:: Stable by history with exception of nonspecific midthoracic /intrascapular discomfort prior to admission, however this has since resolved. No history of fall or injury. Cannot rule out cardiac etiology with negative workup for acute ME as above. (9) Peptic reflux disease SNOMED Code(s): 249170206 Code(s): K21.9 - GASTRO-ESOPHAGEAL REFLUX DISEASE WITHOUT ESOPHAGITIS Status: Chronic Priority: Medium Current Visit: Yes Annotation/Comment:: Stable by history. High-dose IV Pepcid given in the emergency room continuation of oral Protonix for now. Note progressive anemia with Hemoccult and H. pylori antigen in stools ordered. No direct evidence of GI bleed. (10) Lactic acid increased SNOMED Code(s): 54437434 Code(s): E87.2 - ACIDOSIS Status: Acute Priority: High Current Visit: Yes Onset Date: 04/12/19 Annotation/Comment:: As above (11) Hypomagnesemia SNOMED Code(s): 836985073 Code(s): E83.42 - HYPOMAGNESEMIA Status: Chronic Priority: Medium Current Visit: Yes Annotation/Comment:: Increased current magnesium oxide supplementation on admission with magnesium level to be repeated on 04/14. (12) Anemia SNOMED Code(s): 778748021 Code(s): D64.9 - ANEMIA, UNSPECIFIED Status: Acute Priority: High Current Visit: Yes Onset Date: 04/13/19 Qualifiers: Anemia type: unspecified type Qualified Code(s): D64.9 - Anemia, unspecified Annotation/Comment:: As above. Consider further workup including iron studies, etc. depending on clinical course. (13) Hypoalbuminemia SNOMED Code(s): 277978981 Code(s): E88.09 - OTH DISORDERS OF PLASMA-PROTEIN METABOLISM, NEC Status: Acute Priority: Medium Current Visit: Yes Onset Date: 04/13/19 Annotation/Comment:: Observe for now. (14) Hyperlipidemia SNOMED Code(s): 54075657 Code(s): E78.5 - HYPERLIPIDEMIA, UNSPECIFIED Status: Chronic Priority: Medium Current Visit: Yes Qualifiers: Hyperlipidemia type: unspecified Qualified Code(s): E78.5 - Hyperlipidemia , unspecified Annotation/Comment:: As above - Problem List Review Problem List Initiated/Reviewed/Updated: Yes - My Orders Last 24 Hours: My Active Orders 04/12/19 12:00 busPIRone [Buspar] 15 mg PO DAILY@1200 04/12/19 12:47 Vital Signs [RC] Q6HR 04/12/19 18:00 risperiDONE [RisperiDAL] 0.25 mg PO DAILY@1800 04/12/19 20:00 Budesonide [Pulmicort] 0.5 mg NEB BIDRT Mirabegron [Myrbetriq] 25 mg PO BEDTIME Rosuvastatin [Crestor] 20 mg PO BEDTIME risperiDONE [RisperiDAL] 1 mg PO BEDTIME 04/12/19 Lunch [place] [employer] Diet [DIET] 04/13/19 05:11 EKG Documentation Completion [RC] ASDIRECTED - Assessment Assessment:: As above - Plan Plan:: As above. Extensive precautions were given to the patient, who is in agreement with the treatment plan. The patient will require about 2-3 days of inpatient/ acute care secondary to multiple health problems as above. Corrie rosales physician assumes care later today.
[2019-04-13] MEDS: busPIRone 15 MG Tab PO SCH (12:55)
[2019-04-13] MEDS: Bisacodyl 5 MG Tab PO PRN (18:24)
[2019-04-13] MEDS: risperiDONE 0.25 MG Tab PO SCH (18:24)
[2019-04-13] MEDS: Sodium Chloride 0.9% 10 ML Syringe FLUSH PRN (18:25)
[2019-04-13] MEDS: Mirabegron 25 MG Tab Extended Release PO SCH (19:27)
[2019-04-13] MEDS: risperiDONE 1 MG Tab PO SCH (19:27)
[2019-04-13] MEDS: Rosuvastatin 10 MG Tab PO SCH (19:27)
[2019-04-13] MEDS: Acetaminophen 325 MG Tab PO PRN (23:26)
[2019-04-14] MEDS: Albuterol/Ipratropium 3.0-0.5 MG/3 ML Neb Soln NEB SCH ×4 (02:07→19:25)
[2019-04-14] MEDS: cefTRIAXone 1 GM in Sodium Chloride 0.9% 100 ML IV SCH ×2 (05:43→17:58)
[2019-04-14] MEDS: Sodium Chloride 0.9% 10 ML Syringe FLUSH PRN ×2 (05:45→11:14)
[2019-04-14] MEDS: Sodium Chloride 0.9% 10 ML Syringe FLUSH SCH ×2 (06:26→17:58)
[2019-04-14] MEDS: Levofloxacin/Dextrose 5%-Water 500 MG in Premix Bag 1 BAG IV SCH (06:27)
[2019-04-14 07:51] LABS: CHLORIDE,CL 104 mmol/L (98-107); SODIUM,NA 141 mmol/L (136-145)
[2019-04-14] MEDS: Dextromethorphan/guaiFENesin 600-30 MG Tab.ER PO SCH ×2 (08:03→18:04)
[2019-04-14] MEDS: Pantoprazole 40 MG Tab.CR PO SCH (08:04)
[2019-04-14] MEDS: Clopidogrel 75 MG Tab PO SCH (08:04)
[2019-04-14] MEDS: Magnesium Oxide 400 MG Tab PO SCH ×2 (08:04→18:04)
[2019-04-14] MEDS: Acetaminophen 325 MG Tab PO PRN ×2 (08:04→18:17)
[2019-04-14] MEDS: Venlafaxine 75 MG Cap.ER PO SCH (08:06)
[2019-04-14] MEDS: Aspirin 81 MG Tab.Chew PO SCH (08:07)
[2019-04-14] MEDS: metFORMIN 500 MG Tab PO SCH ×2 (08:07→18:03)
[2019-04-14] MEDS: Gabapentin 100 MG Cap PO SCH ×3 (08:07→19:26)
[2019-04-14] MEDS: Lisinopril 10 MG Tab PO SCH (08:07)
[2019-04-14] MEDS: Budesonide 0.5 MG/2 ML Neb Susp NEB SCH ×2 (08:09→19:25)
[2019-04-14] MEDS: busPIRone 15 MG Tab PO SCH (11:13)
--- NOTE | 2019-04-14 12:59 | PCM.PN ---
- General Info Date of Service: 04/14/19 Admission Dx/Problem (Free Text): 1. COPD with bronchopneumonia 2. Coronary artery disease Subjective Update: Patient is feeling much better per self report. Almost feels "back to baseline ". Would like to go home tomorrow. Functional Status: Reports: Pain Controlled, Tolerating Diet, Ambulating, Urinating. Denies: New Symptoms - Review of Systems General: Reports: No Symptoms HEENT: Reports: No Symptoms, Glasses Pulmonary: Reports: Shortness of Breath (mild, with activity), Cough (mild). Denies: Pleuritic Chest Pain, Sputum, Hemoptysis, Wheezing Cardiovascular: Denies: Chest Pain, Orthopnea, Lightheadedness Gastrointestinal: Reports: No Symptoms Genitourinary: Reports: No Symptoms Musculoskeletal: Reports: No Symptoms (no acute changes from baseline) Skin: Reports: No Symptoms Neurological: Denies: Headache, Seizure, Syncope, Trouble Speaking, Difficulty Walking, Change in Speech Psychiatric: Reports: No Symptoms - Patient Data Vitals - Most Recent: Last Vital Signs Temp 36.6 C 04/14/19 11:37 Pulse 78 04/14/19 11:37 Resp 17 04/14/19 11:37 BP 135/67 04/14/19 11:37 Pulse Ox 97 04/14/19 11:37 Weight - Most Recent: 90.86 kg I&O - Last 24 Hours: Intake & Output 04/13/19 04/14/19 04/14/19 22:59 06:59 14:59 Intake Total 1540 300 360 Balance 1540 300 360 Lab Results Last 24 Hours: Laboratory Results - last 24 hr 04/13/19 04/14/19 04/14/19 Range/Units 18:27 07:21 07:21 WBC 7.1 (4.0-10.2) K/uL RBC 4.22 (3.77-5.09) M/uL Hgb 11.3 L (11.7-15.5) g/dL Hct 36.7 (34.0-46.0) % MCV 87.0 (84.0-98.0) fL MCH 26.8 L (28.2-33.3) pg MCHC 30.8 L (31.7-36.0) g/dL RDW 14.3 H (11.2-14.1) % Plt Count 269 (150-350) K/uL Neut % (Auto) 57.4 (45.0-80.0) % Lymph % (Auto) 22.6 (10.0-50.0) % [place] % (Auto) 8.2 (2.0-14.0) % Eos % (Auto) 11.1 H (0.0-5.0) % Baso % (Auto) 0.7 (0.0-2.0) % Neut # (Auto) 4.05 (1.40-7.00) K/uL Lymph # (Auto) 1.59 (0.50-3.50) K/uL [place] # (Auto) 0.58 (0.00-1.00) K/uL Eos # (Auto) 0.78 H (0.00-0.50) K/uL Baso # (Auto) 0.05 (0.00-0.20) K/uL PT 10.8 (9.5-12.0) SEC INR 1.0 APTT 25.0 (21.0-31.3) SEC Sodium (136-145) mmol/L Potassium (3.5-5.1) mmol/L Chloride (98-107) mmol/L Carbon Dioxide (21.0-32.0) mmol/L BUN (7-18) mg/dL Creatinine (0.51-1.17) mg/dL Est Cr Clr Drug Dosing mL/min Estimated GFR (MDRD) mL/min Glucose (74-106) mg/dL Lactic Acid (0.4-2.0) mmol/L Calcium (8.5-10.1) mg/dL Magnesium (1.8-2.4) mg/dL Specimen Type Urincc Urine Color Yellow Urine Appearance Clear Urine pH 5.0 (5.0-9.0) Ur Specific [place] 1.020 (1.005-1.030) Urine Protein Negative (NEGATIVE) mg/dL Urine Glucose (UA) 500 H (NEGATIVE) mg/dL Urine Ketones Negative (NEGATIVE) mg/dL Urine Occult Blood Negative (NEGATIVE) Urine Nitrite Negative (NEGATIVE) Urine Bilirubin Negative (NEGATIVE) Urine Urobilinogen 0.2 (0.2-1.0) E.U./dL Ur Leukocyte Esterase Small H (NEGATIVE) Urine RBC Not seen /HPF Urine WBC 10-20 H /HPF Ur Epithelial Cells Few /LPF Urine Bacteria Moderate H (NONE TO FEW) /HPF Urine Yeast Moderate H (NEGATIVE) /HPF 04/14/19 04/14/19 Range/Units 07:21 07:21 WBC (4.0-10.2) K/uL RBC (3.77-5.09) M/uL Hgb (11.7-15.5) g/dL Hct (34.0-46.0) % MCV (84.0-98.0) fL MCH (28.2-33.3) pg MCHC (31.7-36.0) g/dL RDW (11.2-14.1) % Plt Count (150-350) K/uL Neut % (Auto) (45.0-80.0) % Lymph % (Auto) (10.0-50.0) % [place] % (Auto) (2.0-14.0) % Eos % (Auto) (0.0-5.0) % Baso % (Auto) (0.0-2.0) % Neut # (Auto) (1.40-7.00) K/uL Lymph # (Auto) (0.50-3.50) K/uL [place] # (Auto) (0.00-1.00) K/uL Eos # (Auto) (0.00-0.50) K/uL Baso # (Auto) (0.00-0.20) K/uL PT (9.5-12.0) SEC INR APTT (21.0-31.3) SEC Sodium 141 (136-145) mmol/L Potassium 4.4 (3.5-5.1) mmol/L Chloride 104 (98-107) mmol/L Carbon Dioxide 26.9 (21.0-32.0) mmol/L BUN 12 (7-18) mg/dL Creatinine 0.73 (0.51-1.17) mg/dL Est Cr Clr Drug Dosing 56.71 mL/min Estimated GFR (MDRD) > 60 mL/min Glucose 154 H (74-106) mg/dL Lactic Acid 2.3 H (0.4-2.0) mmol/L Calcium 9.1 (8.5-10.1) mg/dL Magnesium 1.5 L (1.8-2.4) mg/dL Specimen Type Urine Color Urine Appearance Urine pH (5.0-9.0) Ur Specific [place] (1.005-1.030) Urine Protein (NEGATIVE) mg/dL Urine Glucose (UA) (NEGATIVE) mg/dL Urine Ketones (NEGATIVE) mg/dL Urine Occult Blood (NEGATIVE) Urine Nitrite (NEGATIVE) Urine Bilirubin (NEGATIVE) Urine Urobilinogen (0.2-1.0) E.U./dL Ur Leukocyte Esterase (NEGATIVE) Urine RBC /HPF Urine WBC /HPF Ur Epithelial Cells /LPF Urine Bacteria (NONE TO FEW) /HPF Urine Yeast (NEGATIVE) /HPF Med Orders - Current: Current Medications Acetaminophen (Tylenol) 650 mg PO Q4H PRN PRN Reason: Pain/Fever Last Admin: 04/14/19 08:04 Dose: 650 mg Albuterol (Proventil Neb Soln) 2.5 mg NEB Q2H PRN PRN Reason: Dyspnea Albuterol/Ipratropium (Duoneb 3.0-0.5 Mg/3 Ml) 3 ml NEB Q4HRRT PRN PRN Reason: Dyspnea Last Admin: 04/12/19 18:17 Dose: 3 ml Albuterol/Ipratropium (Duoneb 3.0-0.5 Mg/3 Ml) 3 ml NEB Q6HRRT [facility] Last Admin: 04/14/19 08:09 Dose: 3 ml Aspirin (Aspirin) 81 mg PO DAILY [facility] Last Admin: 04/14/19 08:07 Dose: 81 mg Bisacodyl (Dulcolax) 5 mg PO DAILY PRN PRN Reason: Constipation Last Admin: 04/13/19 18:24 Dose: 5 mg Budesonide (Pulmicort) 0.5 mg NEB BIDRT [facility] Last Admin: 04/14/19 08:09 Dose: 0.5 mg Buspirone HCl (Buspar) 15 mg PO DAILY@1200 [facility] Last Admin: 04/14/19 11:13 Dose: 15 mg Clopidogrel Bisulfate (Plavix) 75 mg PO DAILY [facility] Last Admin: 04/14/19 08:04 Dose: 75 mg Gabapentin (Neurontin) 100 mg PO DAILY@08,12,20 [facility] Last Admin: 04/14/19 11:13 Dose: 100 mg Guaifenesin/Dextromethorphan (Mucinex Dm Er 600-30 Mg) 1 tab PO BID [facility] Last Admin: 04/14/19 08:03 Dose: 1 tab Ceftriaxone Sodium 1 gm/ (Sodium Chloride) 100 mls @ 200 mls/hr IV Q12H [facility] Last Admin: 04/14/19 05:43 Dose: 200 mls/hr Levofloxacin/Dextrose 500 mg/ (Premix) 100 mls @ 100 mls/hr IV Q24H [facility] Last Admin: 04/14/19 06:27 Dose: 100 mls/hr Magnesium Sulfate/Dextrose 1 (gm/ Premix) 100 mls @ 100 mls/hr IV ONETIME ONE Stop: 04/14/19 13:27 Magnesium Sulfate/Dextrose 1 (gm/ Premix) 100 mls @ 100 mls/hr IV ONETIME ONE Stop: 04/15/19 09:59 Lisinopril (Prinivil) 15 mg PO DAILY [facility] Last Admin: 04/14/19 08:07 Dose: 15 mg Magnesium Oxide (Magnesium Oxide) 400 mg PO BID [facility] Last Admin: 04/14/19 08:04 Dose: 400 mg Metformin HCl (Glucophage) 1,000 mg PO BID [facility] Last Admin: 04/14/19 08:07 Dose: 1,000 mg Mirabegron (Myrbetriq) 25 mg PO BEDTIME [facility] Last Admin: 04/13/19 19:27 Dose: 25 mg Dapagliflozin Propanediol [Farxiga ] 10mg 10 mg PO DAILY [facility] Pantoprazole Sodium (Protonix) 40 mg PO ACBREAKFAST [facility] Last Admin: 04/14/19 08:04 Dose: 40 mg Risperidone (Risperidal) 0.25 mg PO DAILY@1800 [facility] Last Admin: 04/13/19 18:24 Dose: 0.25 mg Risperidone (Risperidal) 1 mg PO BEDTIME [facility] Last Admin: 04/13/19 19:27 Dose: 1 mg Rosuvastatin Calcium (Crestor) 20 mg PO BEDTIME [facility] Last Admin: 04/13/19 19:27 Dose: 20 mg Senna/Docusate Sodium (Senna Plus) 2 tab PO BID [facility] Last Admin: 04/14/19 08:06 Dose: 2 tab Sodium Chloride (Saline Flush) 10 ml FLUSH ASDIRECTED PRN PRN Reason: Keep Vein Open Last Admin: 04/14/19 11:14 Dose: 10 ml Sodium Chloride (Saline Flush) 10 ml FLUSH Q12H [facility] Last Admin: 04/14/19 06:26 Dose: 10 ml Venlafaxine HCl (Effexor Xr) 225 mg PO DAILY [facility] Last Admin: 04/14/19 08:06 Dose: 225 mg Discontinued Medications Budesonide (Pulmicort) 0.5 mg NEB ONETIME ONE Stop: 04/12/19 04:44 Last Admin: 04/12/19 04:48 Dose: 0.5 mg Famotidine (Pepcid) 40 mg IVPUSH ONETIME ONE Stop: 04/12/19 04:41 Last Admin: 04/12/19 05:03 Dose: 40 mg Non-Formulary Medication (Venlafaxine [Effexor Xr]) 150 mg PO DAILY [facility] - Exam Quality Assessment: DVT Prophylaxis. No: Supplemental Oxygen General: Alert, Oriented, Cooperative, No Acute Distress HEENT: Pupils Equal, Pupils Reactive, EOMI, Mucous Membr. Moist/Violet Neck: Supple Lungs: Decreased Breath Sounds (throughout). No: Crackles, Rales, Rhonchi, Rub , Stridor, Wheezing Cardiovascular: Regular Rate, Regular Rhythm GI/Abdominal Exam: Normal Bowel Sounds, Soft, Non-Tender, No Distention (Female) Exam: Deferred Back Exam: No: CVA Tenderness (L), CVA Tenderness (R), Muscle Spasm, Paraspinal Tenderness, Vertebral Tenderness Extremities: Normal Range of Motion, Non-Tender, Normal Capillary Refill Peripheral Pulses: 2+: Radial (L), Radial (R) Skin: Warm, Dry Neurological: No New Focal Deficit Psy/Mental Status: Alert, Normal Affect, Normal Mood - Problem List & Annotations (1) COPD (chronic obstructive pulmonary disease) SNOMED Code(s): 38289237 Code(s): J44.9 - CHRONIC OBSTRUCTIVE PULMONARY DISEASE, UNSPECIFIED Status : Chronic Priority: High Current Visit: Yes Qualifiers: COPD type: COPD with acute lower respiratory infection Qualified Code(s): J44.0 - Chronic obstructive pulmonary disease with acute lower respiratory infection Annotation/Comment:: Patient much improved today. No clinical evidence of sepsis. COPD exacerbation likely secondary to beginning bronchitis and/or pneumonia. Mild leukocytosis possibly secondary to stress reaction and/or current infection on admission has since resolved with no fever during this hospitalization. Continue aggressive DuoNeb and Pulmicort nebulizer treatments, which should be enforced by [facility] after discharge. Care management team will verify that patient is safe to go to home on [facility] at time of discharge. Patient was hypoxic in the emergency room and did require supplemental O2 therapy. IV Rocephin and IV Levaquin antibiotic therapy. Patient told nurse yesterday that she has an old nebulizer at home that does not work and said she needs a new one if people expect her to use her nebs. Today however she tells examiner that she has a brand new nebulizer at home and has been using it. (2) Lactic acid increased SNOMED Code(s): 40120089 Code(s): E87.2 - ACIDOSIS Status: Acute Priority: High Current Visit: Yes Onset Date: 04/12/19 Annotation/Comment:: Improved to 2.3 today (3) PVCs (premature ventricular contractions) SNOMED Code(s): 97251417 Code(s): I49.3 - VENTRICULAR PREMATURE DEPOLARIZATION Status: Acute Priority: Medium Current Visit: Yes Onset Date: 04/12/19 Annotation/ Comment:: Newly diagnosed with previous history of refractory atrial fibrillation as above. On telemetry. (4) TSH elevation SNOMED Code(s): 143654142 Code(s): R79.89 - OTHER SPECIFIED ABNORMAL FINDINGS OF BLOOD CHEMISTRY Status: Acute Priority: Medium Current Visit: Yes Annotation/Comment:: Initiate Thyroid therapy (5) Pyuria SNOMED Code(s): 1139153, 366569916 Code(s): N39.0 - URINARY TRACT INFECTION, SITE NOT SPECIFIED Status: Acute Priority: Medium Current Visit: Yes Annotation/Comment:: UA obtained today showed some Leuk.Est. and 10-20 WBC/hpf. Patient has been receiving Rocephin for several days which offeres good UTI converage. CAnnot say if patient had obvious UTI at time of admission contributing to clinical picture since UA collection was delayed. UC pending. (6) Diabetes mellitus SNOMED Code(s): 44281280 Code(s): E11.9 - TYPE 2 DIABETES MELLITUS WITHOUT COMPLICATIONS Status: Chronic Priority: Medium Current Visit: Yes Annotation/Comment:: Glycosylated hemoglobin elevated at 8.0% with normal lipid panel under current medical therapy. Home Accu-Cheks under good control by patient history averaging in the 180s to 190s in the a.m. Patient may not be a good candidate for a sliding scale at home secondary to her mental status. Consider more aggressive management by her regular providers, public health, etc. at discharge , although she may be a candidate for long-term care placement. (7) Heart disease SNOMED Code(s): 33950425 Code(s): I51.9 - HEART DISEASE, UNSPECIFIED Status: Chronic Priority: High Current Visit: Yes Annotation/Comment:: Patient is a somewhat poor historian as above. No direct evidence of true angina with chest pain protocol not initiated upon patient's arrival. Probable coronary artery disease based on previous CT scans as above. Standard rule out [place] orders have been negative to this point. (8) Comfort measures only status SNOMED Code(s): 89470965336234 Code(s): Z51.5 - ENCOUNTER FOR PALLIATIVE CARE Status: Chronic Priority: Medium Current Visit: Yes Annotation/Comment:: Comfort/palliative care confirmed with the patient today. (9) Hypertension SNOMED Code(s): 84405599 Code(s): I10 - ESSENTIAL (PRIMARY) HYPERTENSION Status: Chronic Priority : Medium Current Visit: Yes Qualifiers: Hypertension type: essential hypertension Qualified Code(s): I10 - Essential (primary) hypertension Annotation/Comment:: Blood pressure somewhat elevated in the emergency room, however improved during initial phases of this hospitalization. Continue to observe closely. (10) Hypomagnesemia SNOMED Code(s): 315712826 Code(s): E83.42 - HYPOMAGNESEMIA Status: Chronic Priority: Medium Current Visit: Yes Annotation/Comment:: Increased current magnesium oxide supplementation on admission with magnesium level still 1.5 today. IV dose ordered for today and tomorrow morning. (11) Osteoarthritis SNOMED Code(s): 103188585 Code(s): M19.90 - UNSPECIFIED OSTEOARTHRITIS, UNSPECIFIED SITE Status: Chronic Priority: Medium Current Visit: Yes Qualifiers: Osteoarthritis location: multiple joints Osteoarthritis type: primary Qualified Code(s): M15.0 - Primary generalized (osteo)arthritis Annotation/Comment:: Stable by history with exception of nonspecific midthoracic /intrascapular discomfort prior to admission, however this has since resolved. No history of fall or injury. Cannot rule out cardiac etiology with negative workup for acute [place] as above. (12) Peptic reflux disease SNOMED Code(s): 949720519 Code(s): K21.9 - GASTRO-ESOPHAGEAL REFLUX DISEASE WITHOUT ESOPHAGITIS Status: Chronic Priority: Medium Current Visit: Yes Annotation/Comment:: Stable by history. High-dose IV Pepcid given in the emergency room continuation of oral Protonix for now. Note progressive anemia with Hemoccult and H. pylori antigen in stools ordered. No direct evidence of GI bleed. (13) Mixed anxiety depressive disorder SNOMED Code(s): 270644106 Code(s): F41.8 - OTHER SPECIFIED ANXIETY DISORDERS Status: Chronic Priority: Low Current Visit: No Annotation/Comment:: Stable by history and during this hospitalization with previous history of psychosis, alcohol addiction, etc. as above. - Problem List Review Problem List Initiated/Reviewed/Updated: Yes - My Orders Last 24 Hours: My Active Orders 04/14/19 12:27 CULTURE URINE [RM] Routine 04/14/19 12:28 Magnesium Sulfate/D5W [Magnesium Sulfate in D5W 100 Premix] 1 gm Premix Bag 1 bag IV ONETIME 04/15/19 09:00 Magnesium Sulfate/D5W [Magnesium Sulfate in D5W 100 Premix] 1 gm Premix Bag 1 bag IV ONETIME - Assessment Assessment:: As above - Plan Plan:: As above. Extensive precautions were given to the patient, who is in agreement with the treatment plan. The patient will require about 1-2 days of inpatient care prior to discharge.
[2019-04-14] MEDS: risperiDONE 0.25 MG Tab PO SCH (18:04)
[2019-04-14] MEDS: Rosuvastatin 10 MG Tab PO SCH (19:25)
[2019-04-14] MEDS: risperiDONE 1 MG Tab PO SCH (19:26)
[2019-04-14] MEDS: Mirabegron 25 MG Tab Extended Release PO SCH (19:26)
[2019-04-14] MEDS: Bisacodyl 5 MG Tab PO PRN (19:32)
[2019-04-15] MEDS: Albuterol/Ipratropium 3.0-0.5 MG/3 ML Neb Soln NEB SCH ×3 (01:05→14:39)
[2019-04-15] MEDS: cefTRIAXone 1 GM in Sodium Chloride 0.9% 100 ML IV SCH (05:38)
[2019-04-15] MEDS: Sodium Chloride 0.9% 10 ML Syringe FLUSH SCH (05:39)
[2019-04-15] MEDS: Levofloxacin/Dextrose 5%-Water 500 MG in Premix Bag 1 BAG IV SCH (06:16)
[2019-04-15] MEDS: Sodium Chloride 0.9% 10 ML Syringe FLUSH PRN (06:16)
[2019-04-15 06:27] VITALS: PULSE 88
[2019-04-15] MEDS: Dextromethorphan/guaiFENesin 600-30 MG Tab.ER PO SCH (07:20)
[2019-04-15] MEDS: Venlafaxine 75 MG Cap.ER PO SCH (07:20)
[2019-04-15] MEDS: metFORMIN 500 MG Tab PO SCH (07:21)
[2019-04-15] MEDS: Magnesium Oxide 400 MG Tab PO SCH (07:22)
[2019-04-15] MEDS: Lisinopril 10 MG Tab PO SCH (07:22)
[2019-04-15] MEDS: Clopidogrel 75 MG Tab PO SCH (07:22)
[2019-04-15] MEDS: Gabapentin 100 MG Cap PO SCH ×2 (07:32→11:30)
[2019-04-15] MEDS: Aspirin 81 MG Tab.Chew PO SCH (07:32)
[2019-04-15] MEDS: Pantoprazole 40 MG Tab.CR PO SCH (07:32)
[2019-04-15] MEDS: Budesonide 0.5 MG/2 ML Neb Susp NEB SCH (07:32)
[2019-04-15 07:33] VITALS: BP 136/66
[2019-04-15] MEDS ORDERED: Polyethylene Glycol 3350 Powder 17 GM Packet PO ONE (08:00)
[2019-04-15 09:15] LABS: CHLORIDE,CL 102 mmol/L (98-107); SODIUM,NA 140 mmol/L (136-145)
[2019-04-15] MEDS: busPIRone 15 MG Tab PO SCH (11:30)
--- NOTE | 2019-04-15 13:44 | PCM.DCSUM1 ---
Discharge Summary - Hospital Course Brief History: Admitted for COPD exacerbation and treatment of suspected pneumonia Diagnosis: Stroke: No - Discharge Data Discharge Date: 04/15/19 Discharge Disposition: Home, Self-Care 01 Condition: Good - Discharge Diagnosis/Problem(s) (1) COPD (chronic obstructive pulmonary disease) SNOMED Code(s): 86983595 ICD Code: J44.9 - CHRONIC OBSTRUCTIVE PULMONARY DISEASE, UNSPECIFIED Status : Chronic Priority: High Current Visit: Yes Problem Details: Patient feels improved and would like to go home. . No clinical evidence of sepsis. COPD exacerbation likely secondary to beginning bronchitis and/or pneumonia. WBC normal. Afebrile. No longer requiring supplemental oxygen. Patient told nurse that she has an old nebulizer at home that does not work and said she needs a new one if people expect her to use her nebs. Today however she tells examiner that she has a brand new nebulizer at home and has been using it. Recommend follow up by public health to verify that patient has what she needs at home and is using medications appropriately. Qualifiers: COPD type: COPD with acute lower respiratory infection Qualified Code(s): J44.0 - Chronic obstructive pulmonary disease with acute lower respiratory infection (2) Lactic acid increased SNOMED Code(s): 49597223 ICD Code: E87.2 - ACIDOSIS Status: Acute Priority: High Current Visit: Yes Onset Date: 04/12/19 Problem Details: Improved level. No evidence of sepsis observed during hospitalization. (3) PVCs (premature ventricular contractions) SNOMED Code(s): 54783514 ICD Code: I49.3 - VENTRICULAR PREMATURE DEPOLARIZATION Status: Acute Priority: Medium Current Visit: Yes Onset Date: 04/12/19 Problem Details: Newly diagnosed with previous history of refractory atrial fibrillation. Patient on telemetry during stay. Did have brief episode of what appeared to be atrial flutter but this resolved and was not observed again over the last half of patient's stay. (4) TSH elevation SNOMED Code(s): 133337965 ICD Code: R79.89 - OTHER SPECIFIED ABNORMAL FINDINGS OF BLOOD CHEMISTRY Status: Acute Priority: Medium Current Visit: Yes Problem Details: Initiate Thyroid therapy (5) Pyuria SNOMED Code(s): 3552639, 835097892 ICD Code: N39.0 - URINARY TRACT INFECTION, SITE NOT SPECIFIED Status: Acute Priority: Medium Current Visit: Yes Problem Details: UA obtained today showed some Leuk.Est. and 10-20 WBC/hpf. Patient has been receiving Rocephin for several days which offeres good UTI converage. CAnnot say if patient had obvious UTI at time of admission contributing to clinical picture since UA collection was delayed. UC reflected contamination. (6) Diabetes mellitus SNOMED Code(s): 31561322 ICD Code: E11.9 - TYPE 2 DIABETES MELLITUS WITHOUT COMPLICATIONS Status: Chronic Priority: Medium Current Visit: Yes Problem Details: Glycosylated hemoglobin elevated at 8.0% with normal lipid panel under current medical therapy. Home Accu-Cheks under good control by patient history averaging in the 180s to 190s in the a.m. Patient may not be a good candidate for a sliding scale at home secondary to her mental status. Consider more aggressive management by her regular providers, public health, etc. at discharge, although she may be a candidate for long-term care placement. (7) Heart disease SNOMED Code(s): 40221523 ICD Code: I51.9 - HEART DISEASE, UNSPECIFIED Status: Chronic Priority: High Current Visit: Yes Problem Details: Patient is a somewhat poor historian as above. No direct evidence of true angina with chest pain protocol not initiated upon patient's arrival. Probable coronary artery disease based on previous CT scans as above. Standard rule out [place] orders have been negative to this point. (8) Comfort measures only status SNOMED Code(s): 44405897369671 ICD Code: Z51.5 - ENCOUNTER FOR PALLIATIVE CARE Status: Chronic Priority : Medium Current Visit: Yes Problem Details: Comfort/palliative care confirmed with the patient today. (9) Hypertension SNOMED Code(s): 60937933 ICD Code: I10 - ESSENTIAL (PRIMARY) HYPERTENSION Status: Chronic Priority : Medium Current Visit: Yes Problem Details: Blood pressure somewhat elevated in the emergency room, however improved during initial phases of this hospitalization. Continue to observe closely. Qualifiers: Hypertension type: essential hypertension Qualified Code(s): I10 - Essential (primary) hypertension (10) Hypomagnesemia SNOMED Code(s): 378724930 ICD Code: E83.42 - HYPOMAGNESEMIA Status: Chronic Priority: Medium Current Visit: Yes Problem Details: Increased current magnesium oxide supplementation on admission with magnesium level still 1.6 Will increase recommended daily supplementation. Did receive IV Mag during stay. (11) Osteoarthritis SNOMED Code(s): 487085270 ICD Code: M19.90 - UNSPECIFIED OSTEOARTHRITIS, UNSPECIFIED SITE Status: Chronic Priority: Medium Current Visit: Yes Problem Details: Stable by history with exception of nonspecific midthoracic/intrascapular discomfort prior to admission, however this has since resolved. No history of fall or injury. Cannot rule out cardiac etiology with negative workup for acute [place] as above. Qualifiers: Osteoarthritis location: multiple joints Osteoarthritis type: primary Qualified Code(s): M15.0 - Primary generalized (osteo)arthritis (12) Peptic reflux disease SNOMED Code(s): 068136232 ICD Code: K21.9 - GASTRO-ESOPHAGEAL REFLUX DISEASE WITHOUT ESOPHAGITIS Status: Chronic Priority: Medium Current Visit: Yes Problem Details: Stable by history. High-dose IV Pepcid given in the emergency room continuation of oral Protonix for now. Note progressive anemia with Hemoccult and H. pylori antigen in stools ordered. No direct evidence of GI bleed. (13) Mixed anxiety depressive disorder SNOMED Code(s): 891068340 ICD Code: F41.8 - OTHER SPECIFIED ANXIETY DISORDERS Status: Chronic Priority: Low Current Visit: No Problem Details: Stable by history and during this hospitalization with previous history of psychosis, alcohol addiction, etc. as above. - Patient Summary/Data Consults: Public Health has been monitoring patient. This should continue. May need to consider Home Health involvement also for setting up meds/compliance with meds. Hospital Course: As above. Patient's respiratory status improved over course of stay. Received IV antibiotics. Weaned off of O2. WBC normalized. Discharged on PO Levaquin to finish out a 7 day course of treatment. Recommend follow up this week with [facility] for reche[place]. - Patient Instructions Diet: Usual Diet as Tolerated Activity: As Tolerated Showering/Bathing: May Shower Other/Special Instructions: Make an appointment to get rechecked at [facility] Tuesday. USE THE NEBS as directed. The frequency of use may change depending on how you feel over the next few weeks. - Discharge Plan *PRESCRIPTION DRUG MONITORING PROGRAM REVIEWED*: Not Applicable *COPY OF PRESCRIPTION DRUG MONITORING REPORT IN PATIENT WOODY: Not Applicable Prescriptions/Med Rec: Albuterol/Ipratropium [DuoNeb 3.0-0.5 MG/3 ML] 3 ml NEB TID #1 box Budesonide [Pulmicort] 0.5 mg NEB BIDRT #1 box levoFLOXacin [Levaquin] 500 mg PO DAILY #3 tab Levothyroxine Sodium [Synthroid] 100 mcg PO ACBREAKFAST #30 tab Magnesium Oxide 400 mg PO BID #60 tablet Home Medications: Home Meds Acetaminophen [Tylenol Arthritis] 650 mg PO Q8H PRN 04/12/19 [History] Acetaminophen [Tylenol] 325 mg PO Q4H PRN 04/12/19 [History] Albuterol [Ventolin HFA] 2 puff INH Q4H PRN 04/12/19 [History] Albuterol/Ipratropium [DuoNeb 3.0-0.5 MG/3 ML] 3 ml INH Q4H PRN 04/12/19 [ History] Aspirin 81 mg PO DAILY 04/12/19 [History] Bisacodyl [Dulcolax] 5 mg PO DAILY PRN 04/12/19 [History] Calcium Citrate 200 mg PO DAILY 04/12/19 [History] Clopidogrel Bisulfate [Plavix] 75 mg PO DAILY 04/12/19 [History] Dapagliflozin Propanediol [Farxiga] 10 mg PO DAILY 04/12/19 [History] Gabapentin [Neurontin] 100 mg PO DAILY@08,,04/12/19 [History] Lisinopril [Zestril] 15 mg PO DAILY 04/12/19 [History] Magnesium Oxide [Magnesium] 400 mg PO DAILY 04/12/19 [History] Mirabegron [Myrbetriq] 25 mg PO BEDTIME 04/12/19 [History] Non-Formulary Medication [NF Drug] 2 inh INH DAILY 04/12/19 [History] Pantoprazole Sodium [Protonix] 20 mg PO DAILY 04/12/19 [History] Rosuvastatin [Crestor] 20 mg PO BEDTIME 04/12/19 [History] Sennosides/Docusate Sodium [Senna-S] 2 each PO BID 04/12/19 [History] Venlafaxine [Effexor XR] 75 mg PO DAILY 04/12/19 [History] Venlafaxine [Effexor XR] 150 mg PO DAILY 04/12/19 [History] busPIRone [Buspar] 15 mg PO DAILY@12 04/12/19 [History] metFORMIN HCl [Metformin HCl] 1,000 mg PO BID 04/12/19 [History] risperiDONE 1 mg PO BEDTIME 04/12/19 [History] risperiDONE [Risperdal] 0.25 mg PO DAILY@18 04/12/19 [History] Albuterol/Ipratropium [DuoNeb 3.0-0.5 MG/3 ML] 3 ml NEB TID #1 box 04/15/19 [Rx] Budesonide [Pulmicort] 0.5 mg NEB BIDRT #1 box 04/15/19 [Rx] Levothyroxine Sodium [Synthroid] 100 mcg PO ACBREAKFAST #30 tab 04/15/19 [Rx] Magnesium Oxide 400 mg PO BID #60 tablet 04/15/19 [Rx] levoFLOXacin [Levaquin] 500 mg PO DAILY #3 tab 04/15/19 [Rx] Patient Handouts: Levofloxacin injection, Ceftriaxone injection, Chronic Obstructive Pulmonary Disease, [id number], Community-Acquired Pneumonia, Adult , [id number] Forms: ED Department Discharge Referrals: Natalie Johnson RUG REPAIRER [Primary Care Provider] - - Discharge Summary/Plan Comment DC Time >30 min.: Yes (To receive a dose of Magnesium before leaving. ) - General Info Date of Service: 04/15/19 Admission Dx/Problem (Free Text: 1. COPD with bronchopneumonia 2. Coronary artery disease Subjective Update: Patient says that she feels like usual self. Would like to be discharged today. Functional Status: Reports: Pain Controlled, Tolerating Diet, Ambulating, Urinating. Denies: New Symptoms - Review of Systems General: Reports: No Symptoms HEENT: Denies: Ear Pain, Eye Pain, Sore Throat, Rhinitis, Visual Changes Pulmonary: Reports: Cough (mild, nonproductive per patient), Wheezing (mild, at her "baseline" per patient). Denies: Shortness of Breath, Pleuritic Chest Pain , Sputum, Hemoptysis Cardiovascular: Reports: No Symptoms. Denies: Chest Pain, Palpitations, Dyspnea on Exertion, Orthopnea, Lightheadedness Gastrointestinal: Reports: No Symptoms Genitourinary: Reports: No Symptoms Musculoskeletal: Reports: No Symptoms (no change from baseline) Skin: Reports: No Symptoms Neurological: Reports: No Symptoms Psychiatric: Reports: No Symptoms - Patient Data Vitals - Most Recent: Last Vital Signs Temp 36.6 C 04/15/19 06:00 Pulse 88 04/15/19 06:00 Resp 19 04/15/19 06:00 BP 136/66 04/15/19 07:22 Pulse Ox 93 L 04/15/19 06:00 Weight - Most Recent: 90.832 kg I&O - Last 24 hours: Intake & Output 04/14/19 04/15/19 04/15/19 22:59 06:59 14:59 Intake Total 980 200 Output Total 550 500 Balance 430 -300 Lab Results - Last 24 hrs: Laboratory Results - last 24 hr 04/15/19 04/15/19 Range/Units 08:47 08:47 WBC 7.9 (4.0-10.2) K/uL RBC 4.40 (3.77-5.09) M/uL Hgb 11.7 (11.7-15.5) g/dL Hct 38.2 (34.0-46.0) % MCV 86.8 (84.0-98.0) fL MCH 26.6 L (28.2-33.3) pg MCHC 30.6 L (31.7-36.0) g/dL RDW 14.5 H (11.2-14.1) % Plt Count 277 (150-350) K/uL Neut % (Auto) 61.3 (45.0-80.0) % Lymph % (Auto) 20.8 (10.0-50.0) % [place] % (Auto) 7.6 (2.0-14.0) % Eos % (Auto) 9.7 H (0.0-5.0) % Baso % (Auto) 0.6 (0.0-2.0) % Neut # (Auto) 4.85 (1.40-7.00) K/uL Lymph # (Auto) 1.65 (0.50-3.50) K/uL [place] # (Auto) 0.60 (0.00-1.00) K/uL Eos # (Auto) 0.77 H (0.00-0.50) K/uL Baso # (Auto) 0.05 (0.00-0.20) K/uL Sodium 140 (136-145) mmol/L Potassium 4.4 (3.5-5.1) mmol/L Chloride 102 (98-107) mmol/L Carbon Dioxide 26.6 (21.0-32.0) mmol/L BUN 12 (7-18) mg/dL Creatinine 0.72 (0.51-1.17) mg/dL Est Cr Clr Drug Dosing 57.50 mL/min Estimated GFR (MDRD) > 60 mL/min Glucose 202 H (74-106) mg/dL Calcium 9.3 (8.5-10.1) mg/dL Magnesium 1.6 L (1.8-2.4) mg/dL Total Bilirubin 0.2 (0.2-1.0) mg/dL AST 9 L (15-37) U/L ALT 11 L (12-78) U/L Alkaline Phosphatase 62 (46-116) IU/L Total Protein 6.7 (6.4-8.2) g/dL Albumin 3.2 L (3.4-5.0) g/dL NAVEEN Results - Last 24 hrs: Microbiology 04/13/19 18:27 Urine Culture - Final Urine, Clean Catch MIXED STEPHANI SUGGESTIVE OF CONTAMINATION. Med Orders - Current: Current Medications Acetaminophen (Tylenol) 650 mg PO Q4H PRN PRN Reason: Pain/Fever Last Admin: 04/14/19 18:17 Dose: 650 mg Albuterol (Proventil Neb Soln) 2.5 mg NEB Q2H PRN PRN Reason: Dyspnea Albuterol/Ipratropium (Duoneb 3.0-0.5 Mg/3 Ml) 3 ml NEB Q4HRRT PRN PRN Reason: Dyspnea Last Admin: 04/12/19 18:17 Dose: 3 ml Albuterol/Ipratropium (Duoneb 3.0-0.5 Mg/3 Ml) 3 ml NEB Q6HRRT [facility] Last Admin: 04/15/19 07:32 Dose: 3 ml Aspirin (Aspirin) 81 mg PO DAILY [facility] Last Admin: 04/15/19 07:32 Dose: 81 mg Bisacodyl (Dulcolax) 5 mg PO DAILY PRN PRN Reason: Constipation Last Admin: 04/14/19 19:32 Dose: 5 mg Budesonide (Pulmicort) 0.5 mg NEB BIDRT [facility] Last Admin: 04/15/19 07:32 Dose: 0.5 mg Buspirone HCl (Buspar) 15 mg PO DAILY@1200 [facility] Last Admin: 04/15/19 11:30 Dose: 15 mg Clopidogrel Bisulfate (Plavix) 75 mg PO DAILY [facility] Last Admin: 04/15/19 07:22 Dose: 75 mg Gabapentin (Neurontin) 100 mg PO DAILY@08,12,20 [facility] Last Admin: 04/15/19 11:30 Dose: 100 mg Guaifenesin/Dextromethorphan (Mucinex Dm Er 600-30 Mg) 1 tab PO BID [facility] Last Admin: 04/15/19 07:20 Dose: 1 tab Ceftriaxone Sodium 1 gm/ (Sodium Chloride) 100 mls @ 200 mls/hr IV Q12H [facility] Last Admin: 04/15/19 05:38 Dose: 200 mls/hr Levofloxacin/Dextrose 500 mg/ (Premix) 100 mls @ 100 mls/hr IV Q24H [facility] Last Admin: 04/15/19 06:16 Dose: 100 mls/hr Magnesium Sulfate/Dextrose 1 (gm/ Premix) 100 mls @ 100 mls/hr IV ONETIME ONE Stop: 04/15/19 14:16 Lisinopril (Prinivil) 15 mg PO DAILY [facility] Last Admin: 04/15/19 07:22 Dose: 15 mg Magnesium Oxide (Magnesium Oxide) 400 mg PO BID [facility] Last Admin: 04/15/19 07:22 Dose: 400 mg Metformin HCl (Glucophage) 1,000 mg PO BID [facility] Last Admin: 04/15/19 07:21 Dose: 1,000 mg Mirabegron (Myrbetriq) 25 mg PO BEDTIME [facility] Last Admin: 04/14/19 19:26 Dose: 25 mg Dapagliflozin Propanediol [Farxiga ] 10mg 10 mg PO DAILY [facility] Pantoprazole Sodium (Protonix) 40 mg PO ACBREAKFAST [facility] Last Admin: 04/15/19 07:32 Dose: 40 mg Risperidone (Risperidal) 0.25 mg PO DAILY@1800 [facility] Last Admin: 04/14/19 18:04 Dose: 0.25 mg Risperidone (Risperidal) 1 mg PO BEDTIME [facility] Last Admin: 04/14/19 19:26 Dose: 1 mg Rosuvastatin Calcium (Crestor) 20 mg PO BEDTIME [facility] Last Admin: 04/14/19 19:25 Dose: 20 mg Senna/Docusate Sodium (Senna Plus) 2 tab PO BID [facility] Last Admin: 04/15/19 07:21 Dose: 2 tab Sodium Chloride (Saline Flush) 10 ml FLUSH ASDIRECTED PRN PRN Reason: Keep Vein Open Last Admin: 04/15/19 06:16 Dose: 10 ml Sodium Chloride (Saline Flush) 10 ml FLUSH Q12H [facility] Last Admin: 04/15/19 05:39 Dose: 10 ml Venlafaxine HCl (Effexor Xr) 225 mg PO DAILY [facility] Last Admin: 04/15/19 07:20 Dose: 225 mg Discontinued Medications Budesonide (Pulmicort) 0.5 mg NEB ONETIME ONE Stop: 04/12/19 04:44 Last Admin: 04/12/19 04:48 Dose: 0.5 mg Famotidine (Pepcid) 40 mg IVPUSH ONETIME ONE Stop: 04/12/19 04:41 Last Admin: 04/12/19 05:03 Dose: 40 mg Magnesium Sulfate/Dextrose 1 (gm/ Premix) 100 mls @ 100 mls/hr IV ONETIME ONE Stop: 04/14/19 13:27 Last Admin: 04/14/19 14:06 Dose: 100 mls/hr Magnesium Sulfate/Dextrose 1 (gm/ Premix) 100 mls @ 100 mls/hr IV ONETIME ONE Stop: 04/15/19 09:59 Last Admin: 04/15/19 08:35 Dose: 100 mls/hr Magnesium Sulfate/Dextrose 1 (gm/ Premix) 100 mls @ 100 mls/hr IV ONETIME ONE Stop: 04/15/19 19:59 Non-Formulary Medication (Venlafaxine [Effexor Xr]) 150 mg PO DAILY [facility] Polyethylene Glycol (Miralax) 17 gm PO ONETIME ONE Stop: 04/15/19 08:01 Last Admin: 04/15/19 07:19 Dose: 17 gm - Exam Quality Assessment: Denies: Supplemental Oxygen General: Reports: Alert, Oriented, Cooperative, No Acute Distress HEENT: Reports: Pupils Equal, Pupils Reactive, EOMI, Mucous Membr. Moist/[place] Neck: Reports: Supple Lungs: Reports: Clear to Auscultation, Normal Respiratory Effort Cardiovascular: Reports: Regular Rate, Regular Rhythm GI/Abdominal Exam: Normal Bowel Sounds, Soft, Non-Tender, No Distention (Female) Exam: Deferred Rectal (Female) Exam: Deferred Back Exam: Denies: CVA Tenderness (L), CVA Tenderness (R), Muscle Spasm, Paraspinal Tenderness, Vertebral Tenderness Extremities: Normal Range of Motion, Non-Tender, Normal Capillary Refill Skin: Reports: Warm, Dry Neurological: Reports: No New Focal Deficit Psy/Mental Status: Reports: Alert, Normal Affect, Normal Mood
[2019-04-15] MEDS ORDERED: Levothyroxine 75 MCG Tab PO ONE (14:01)
== END 2019-04-15 16:58 | disposition home or self-care (01) | DRG 190 ==
LOC: LL.ED 04:18 → LL.MS 05:55
PROVIDERS: ADMIT Family Medicine; ATTEND Family Medicine
DX: J44.1 Chronic obstructive pulmonary disease with (acute) exacerbation (principal); J18.0 Bronchopneumonia, unspecified organism; E87.2 Acidosis; N39.0 Urinary tract infection, site not specified; J44.0 Chronic obstructive pulmonary disease with (acute) lower respiratory infection; I49.3 Ventricular premature depolarization; R94.6 Abnormal results of thyroid function studies; J44.9 Chronic obstructive pulmonary disease, unspecified; E11.9 Type 2 diabetes mellitus without complications; I10 Essential (primary) hypertension; F41.8 Other specified anxiety disorders; K27.9 Peptic ulcer, site unspecified, unspecified as acute or chronic, without hemorrhage or perforation; K21.9 Gastro-esophageal reflux disease without esophagitis; Z51.5 Encounter for palliative care; E83.42 Hypomagnesemia; M19.90 Unspecified osteoarthritis, unspecified site; K59.09 Other constipation; G89.29 Other chronic pain; M54.9 Dorsalgia, unspecified; F09 Unspecified mental disorder due to known physiological condition; M81.0 Age-related osteoporosis without current pathological fracture; F41.9 Anxiety disorder, unspecified; F32.9 Major depressive disorder, single episode, unspecified; E66.9 Obesity, unspecified; Z98.49 Cataract extraction status, unspecified eye; Z90.49 Acquired absence of other specified parts of digestive tract; Z90.710 Acquired absence of both cervix and uterus; E78.2 Mixed hyperlipidemia; Z88.0 Allergy status to penicillin; Z88.2 Allergy status to sulfonamides; Z79.02 Long term (current) use of antithrombotics/antiplatelets; Z79.84 Long term (current) use of oral hypoglycemic drugs; Z68.36 Body mass index [BMI] 36.0-36.9, adult; Z79.82 Long term (current) use of aspirin; Z79.899 Other long term (current) drug therapy; H54.7 Unspecified visual loss; I48.91 Unspecified atrial fibrillation; I25.10 Atherosclerotic heart disease of native coronary artery without angina pectoris; E78.00 Pure hypercholesterolemia, unspecified; I35.2 Nonrheumatic aortic (valve) stenosis with insufficiency; K59.00 Constipation, unspecified
CPT/HCPCS: 36415; 71045; 80053; 82550; 82553; 83605; 83735; 83880; 84443; 84484; 84550; 85025; 85379; 85610; 85730; 93005; 94640; 96374; 99285; J3490; 80048; 80061; 81001; 83036; 87086; A4217; A9270-GY; J0696; J1956; J3475; J7050; J7620-GY

== ENCOUNTER 2022-08-06 19:16 | Emergency (ER) | payer MEDICARE, BC, MEDICAID ==
[2022-08-06] MEDS ORDERED: Sodium Chloride 0.9% 10 ML Syringe FLUSH PRN (19:21)
[2022-08-06] MEDS ORDERED: Morphine 4 MG/ML Syringe IVPUSH ONE (19:24)
[2022-08-06] MEDS ORDERED: Ondansetron 4 MG/2 ML SDV IVPUSH ONE (19:24)
[2022-08-06] MEDS ORDERED: Lactated Ringers 1,000 ML IV SCH (19:30)
[2022-08-06 20:04] LABS: CHLORIDE,CL 97 mmol/L (98-107); SODIUM,NA 136 mmol/L (136-145)
[2022-08-06 20:06] LABS: ANION GAP 16.9 meq/L (7-15); ESTIMATED GFR 57 mL/min (>=60)
[2022-08-06 20:12] LABS: CORONAVIRUS COVID-19 NAA NEGATIVE (NEGATIVE); RESPIRATORY SYNCYTIAL VIR NAA NEGATIVE (NEGATIVE)
[2022-08-06] MEDS ORDERED: Iopamidol 612 MG/ML 100 ML Bottle IVPUSH ONE (20:29)
[2022-08-06] MEDS ORDERED: Iopamidol 612 MG/ML 100 ML Bottle ONE (20:33)
[2022-08-06] MEDS ORDERED: cefTRIAXone 2 GM Vial IVPUSH ONE (20:40)
== END 2022-08-06 19:27 ==
LOC: MERGE 19:16 → LL.ED 19:16
DX: N39.0 Urinary tract infection, site not specified (principal); E86.0 Dehydration; Z20.822 Contact with and (suspected) exposure to COVID-19
CPT/HCPCS: 0241U; 36415; 74177; 80053; 81001; 83735; 84100; 85025; 86140; 87086; 87088; 87186; 96361; 96374; 96375; 96376; 99284; 99284-25; Q9967

== ENCOUNTER 2022-08-06 19:28 | Emergency (ER) | payer MEDICARE, BC ==
[2022-08-06] MEDS ORDERED: Sodium Chloride 0.9% 10 ML Syringe FLUSH PRN (19:29)
[2022-08-06] MEDS ORDERED: Ondansetron 4 MG/2 ML SDV IVPUSH ONE (19:30)
[2022-08-06] MEDS ORDERED: Lactated Ringers 1,000 ML IV SCH (19:30)
[2022-08-06] MEDS ORDERED: Morphine 2 MG/ML SYRINGE IVPUSH ONE (19:31)
[2022-08-06] MEDS ORDERED: cefTRIAXone 2 GM Vial IVPUSH SCH (21:00)
[2022-08-06 21:50] VITALS: PULSE 102
[2022-08-06 23:31] VITALS: BP 128/80
== END 2022-08-06 23:00 ==
LOC: LL.ED 19:28
DX: R10.32 Left lower quadrant pain (principal); R11.2 Nausea with vomiting, unspecified
CPT/HCPCS: 96361; 96374; 96375; 99284-25; J0696; J2270; J2405; J7120